=== PATIENT | male | born 1955 | race Caucasian/White ===

== ENCOUNTER 2020-04-02 09:29 | Inpatient (IN) ==
--- NOTE | 2020-03-26 12:19 | Anesthesiology Consultation ---
Date of Service March 26, 2020 Assessment & Plan (1) Encounter for pre-operative examination: Chart Review Chart Review: Acceptable Risk for Surgery and Patient NOT seen in Pre Admission Testing Per nursing assessment 03/25/20, pt resides in [facility]. Travel to [facility] for doctor's appointment (wore mask). . No known contact with PUIs or Covid positive people. No current Covid related symptoms or history of Covid testing - Check BSG AM DOS History Surgery Operation Date: 04/02/20 11:15 Proposed Procedures p L2-S1 Decompression Fusion, Spinal Cord Monitoring - Juve Verde, Height/Weight Height: 5 ft 11 in Weight: 124.738 kg Allergies Allergy/AdvReac Type Severity Reaction Status Date / Time morphine AdvReac Intermediate NAUSEA AND Verified 03/25/20 15:33 VOMITING oxycodone AdvReac Intermediate N/V Verified 03/25/20 15:33 Medications Home Medications Medication Instructions Recorded Confirmed Last Taken acetaminophen 1,000 mg PO Q8H PRN 07/13/18 03/25/20 Unknown docusate sodium [Stool Softener] 100 mg PO HS 07/13/18 03/25/20 Unknown propranolol 20 mg tablet 20 mg PO BID #60 tab 03/02/20 03/25/20 Unknown lisinopril 10 mg PO HS 03/25/20 03/25/20 Unknown metformin 500 mg PO QPM 03/25/20 03/25/20 Unknown naproxen sodium [Aleve] 440 mg PO Q12H PRN 03/25/20 03/25/20 Unknown Past Medical History Medical History Benign essential hypertension Hearing deficit Lumbar spinal stenosis Lumbar spondylosis Osteoarthritis of hip T2DM (type 2 diabetes mellitus) Tremor reason for propanolol Past Family History Family History Father Cardiac disorder Hypertension Family history of diabetes mellitus Mother Lung cancer Family history of diabetes mellitus Daughter Family history of diabetes mellitus Grandmother (Maternal) Family history of diabetes mellitus Grandmother (Paternal) Family history of diabetes mellitus Other No family history of adverse response to anesthesia Denies family history of Ovarian cancer Prostate cancer Breast cancer Colorectal cancer Past Surgical History Surgical History History of bilateral cataract extraction History of left hip replacement (2011) History of right hip replacement (2015) x2--2016, 05/10/2018 History of tooth extraction 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 Social History Smoking Status: Never smoker tobacco type: cigars Do You Dip or Chew Tobacco: No Hx Alcohol Use: Yes Alcohol type: beer alcohol intake frequency: other Alcohol Intake Frequency Comment: rarely, one or 2 drinks a year Hx Substance Use: No substance use type: does not use Testing Laboratory Results Laboratory Tests 03/12/20 03/24/20 03/24/20 10:55 08:46 08:46 WBC 5.18 Hgb 15.0 Hct 44.1 Plt Count 209 PT 11.3 INR 1.1 Sodium 140 Potassium 4.3 Chloride 105 Carbon Dioxide 27 BUN 19 H Creatinine 1.04 Glucose 105 H Hemoglobin A1c TSH 03/24/20 03/24/20 08:46 08:47 WBC Hgb Hct Plt Count PT INR Sodium Potassium Chloride Carbon Dioxide BUN Creatinine Glucose Hemoglobin A1c 6.0 H TSH 1.210 Electrocardiogram Date: 03/12/20 Findings: + NSR @ (81) Chest X-Ray Date: 03/12/20 Findings: + NAD Heart is borderline enlarged. There is minor basilar interstitial thickening.
[~2020-04-02 09:29] MED LIST: ACETAMINOPHEN 500 MG TAB PO SCH; CEFAZOLIN 3000MG 72.5 ML IV SCH; CeleBREX 200 MG CAP PO SCH; GABAPENTIN 600 MG DOSE PO SCH; LR 15ML/HR IV SCH
[2020-04-02] MEDS ORDERED: ROCURONIUM BROMIDE 10 MG/ML 5 ML VIAL ONE ×5 (10:03→14:37)
[2020-04-02] MEDS ORDERED: PROPOFOL IV EMULSION 10 MG/ML 20 ML VIAL IV ONE (10:03)
[2020-04-02] MEDS ORDERED: DEXAMETHASONE SOD INJ 4 MG/ML VIAL ONE (10:03)
[2020-04-02] MEDS ORDERED: fentaNYL citrate 100 MCG/2 ML VIAL ONE ×2 (10:03→15:24)
[2020-04-02] MEDS ORDERED: ONDANSETRON INJ 2 MG/ML 2 ML VIAL ONE (10:03)
[2020-04-02] MEDS ORDERED: LIDOCAINE HCL 2% 2 ML VIAL/AMP(20MG/ML) INFIL ONE (10:03)
[2020-04-02] MEDS ORDERED: MIDAZOLAM HCL 1 MG/ML 2ML VIAL ONE (10:03)
--- NOTE | 2020-04-02 10:13 | History & Physical Bridge Note ---
Date of Service April 02, 2020 History & Physical Bridge Note I have examined the patient, reviewed the History & Physical and in the interval since the performance of the History & Physical I have noted the following changes of clinical significance: no changes noted
--- NOTE | 2020-04-02 10:14 | History & Physical Report ---
Date of Service April 02, 2020 Assessment & Plan (1) Neurogenic claudication due to lumbar spinal stenosis: L2-S1 decompression fusion Present on Admission?: Yes History of Present Illness Chief Complaint: Back with bilateral leg pain Primary Care Provider: Loren Rubi DO This is a 64-year-old male who presents with marked decline in status with progressive back and bilateral leg pain. After failing extensive course of nonoperative care he is here for surgical intervention. Allergies Allergy/AdvReac Type Severity Reaction Status Date / Time morphine AdvReac Intermediate NAUSEA AND Verified 04/02/20 10:04 VOMITING oxycodone AdvReac Intermediate N/V Verified 04/02/20 10:04 Home Medications Home Medications Medication Instructions Recorded Confirmed Type docusate sodium [Stool Softener] 100 mg PO HS 07/13/18 04/02/20 History propranolol 20 mg tablet 20 mg PO BID #60 tab 03/02/20 04/02/20 Rx lisinopril 10 mg PO HS 03/25/20 04/02/20 History metformin 500 mg PO QPM 03/25/20 04/02/20 History Past Med/Surg History Medical History Benign essential hypertension Hearing deficit Lumbar spinal stenosis Lumbar spondylosis Osteoarthritis of hip T2DM (type 2 diabetes mellitus) Tremor reason for propanolol Surgical History History of bilateral cataract extraction History of left hip replacement (2011) History of right hip replacement (2015) x2--2015, 05/10/2018 History of tooth extraction 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 Family History Father Cardiac disorder Hypertension Family history of diabetes mellitus Mother Lung cancer Family history of diabetes mellitus Daughter Family history of diabetes mellitus Grandmother (Maternal) Family history of diabetes mellitus Grandmother (Paternal) Family history of diabetes mellitus Other No family history of adverse response to anesthesia Denies family history of Ovarian cancer Prostate cancer Breast cancer Colorectal cancer Social History Preferred Language: Urugu[place] Communication Ability: Effective Visual Impairment: No Limitations Hearing Ability: Normal Cashier Associate Required: No Beliefs That Will Affect Care: None marital status: Current Living Situation: Spouse current occupational status: employed 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 Other Information That Helps Us Care for You: No Feels Safe at Home: Yes Safety Concerns: Feels Safe At This Time Smoking Status: Former smoker Tobacco Type: cigars ; Do You Dip or Chew Tobacco: No ; Second Hand Exposure: No ; Tobacco Cessation Education Requested by Patient: No Hx Alcohol Use: Yes Alcohol type: beer Hx Substance Use: No Childhood Exposure to Second-Hand Smoke: No caffeine: No Dental Care, Regularly: No Physical Activity Frequency: Does not Exercise Seatbelt Use: always Physical Exam Physical Exam: Patient is alert and oriented Heart is regular rate and rhythm Lungs clear to auscultation Neurologically intact Results & Data Vital Signs (Past 12 Hours) Vital Signs Temp Pulse Resp BP Pulse Ox 04/02/20 10:00 37 C 78 18 131/73 96
[2020-04-02] MEDS ORDERED: EPINEPHrine INJ 1 MG/ML AMP ONE (10:56)
[2020-04-02] MEDS ORDERED: BUPIVACAINE 0.5 % 5 MG/1 ML MPF 30ML VIAL ONE (10:56)
[2020-04-02] MEDS ORDERED: BACITRACIN INJ 50,000 UNIT VIAL ONE (10:56)
[2020-04-02] MEDS ORDERED: ePHEDrine sulfate 50 MG/ML AMP IV PRN (11:18)
[2020-04-02] MEDS ORDERED: fentaNYL citrate 100 MCG/2 ML VIAL IV PRN (11:18)
[2020-04-02] MEDS ORDERED: HYDROmorphone INJ 2 MG/ML SYR/VIAL IV PRN (11:18)
[2020-04-02] MEDS ORDERED: ONDANSETRON INJ 2 MG/ML 2 ML VIAL IV PRN ×2 (11:18→16:36)
[2020-04-02] MEDS ORDERED: ATROPINE SULFATE 0.1 MG/ML 10ML SYR IV PRN (11:18)
[2020-04-02] MEDS ORDERED: PHENYLEPHRINE 100MCG/ML 5ML SYR ONE (12:41)
[2020-04-02] MEDS ORDERED: ePHEDrine sulfate 50 MG/ML SYR ONE ×2 (12:41→14:36)
[2020-04-02] MEDS ORDERED: ALBUMIN HUMAN 5% 12.5 GM/250 ML VIAL IV ONE (14:33)
[2020-04-02] MEDS ORDERED: NEOSTIGMINE METHYLSULFATE 5 MG/5 ML SYR ONE (14:36)
[2020-04-02] MEDS ORDERED: GLYCOPYRROLATE 0.2 MG/ML VIAL ONE (14:36)
[2020-04-02] MEDS ORDERED: FLOSEAL HEMOSTATIC MATRIX 10ML TOP ONE (14:46)
--- NOTE | 2020-04-02 14:51 | Operative Report ---
Post Operative Report Pre & Post Diagnosis Operation Date: 04/02/20 11:15 Pre-Op Diagnosis: Neurogenic Claudication due to Lumbar Spinal Stenosis Post-Op Diagnosis: Neurogenic Claudication due to Lumbar Spinal Stenosis I identified the patient and participated in the time-out.: Yes Procedure Operation Date: 04/02/20 11:15 Actual Procedures #1 lumbar decompression with bilateral medial facetectomies and foraminotomies L2-3, L3-4, L4-5 and L5-S1. #2 posterior spinal fusion L2-3, L3-4, L4-5 and L5- S1. #3 placed a posterior segmental instrumentation L2-S1. #4 interbody fusion L4-5 and L5-S1. #5 placement titanium 10 x 26 mm cage at L4-5 and 12 x 26 mm at L5-S1. #6 placement locally harvested morselized autograft in the posterior lateral gutters. #7 placement infuse collagen sponge, master graft in the posterior lateral gutters and ostial amp and interbody space. Surgeon Juve Verde, DO Furs Salesperson Lorena Perera Estimated Blood Loss 850 Findings See Below The patient is 5 foot 11 inches tall weighing over 119 kg with a BMI in excess of 36. Patient's body habitus did add significant technical difficulty adding at least 50% increase to the operative time and will require additional p ostoperative management. Specimens None Indications This is a 64-year-old male who presents with a severe multilevel spinal stenosis and is here for the above-mentioned procedure. Description of Procedure Patient was met with preoperatively case discussed all questions addressed. After informed consent obtained patient was taken to the operative suite underwent intubation placed in a prone position the Buzz table on top of the Ulices frame. All bony prominences well-padded eyes inspected to ensure no external pressure placed upon them. This point the lumbar spine was prepped and draped in normal sterile fashion. Sharp dissection with the assistance of Bovie cautery was performed down to and exposing the lamina and transverse processes of L2 L3-L4-L5 and the sacral ala bilaterally. From a caudal cephalad fashion complete laminectomy of L5 L4 L3 and L2 was performed including bilateral medial facetectomies and foraminotomies addressing severe spinal stenosis. Pedicle screws were then placed in L2-L3 L4-L5 and S1 levels bilaterally with assistance of fluoroscopy and appropriately sized fely placed. Believe a transforaminal approach on the left complete discectomy of L5-S1 was performed endplates curetted to subcortical bleeding bone and a 12 x 26 mm titanium cage filled with osteo-bone graft tapped in position. Then proceeded to L4-[address] of a transforaminal approach complete discectomy was performed endplates coated to subcortical being bone and a 10 x 26 mm titanium cage filled osteo-amp bone graft tapped position. The rods were then locked into final position bilaterally. The transverse processes of L2 L3-L4-L5 and sacral ala burred to subcortical leading bone. Infuse collagen sponge master graft local autograft placed in the posterior lateral gutters. 15 round KELLY drain inserted. The incision was then closed with 1 Vicryl in the fascia 2-0 Vicryl subcutaneously and 4 Monocryl for final skin closure. Steri-Strip sterile dressings placed. Patient will continue PACU stable addition. Please note spinal cord monitoring was utilized that the procedure no changes noted. Lastly Lorena Perera was present at the entire procedure involved the patient positioning complex portions of the surgery and final skin closure. I attest to the content of the Intraoperative Record and any orders documented therein. Any exceptions are noted below.
--- NOTE | 2020-04-02 14:53 | Fluoroscopy Report ---
FL lumbar spine 2-3V CLINICAL HISTORY: L2-S1 DECOMP/FUSION COMPARISON STUDY: None FLUOROSCOPY TIME: 29 seconds NUMBER OF FLUOROSCOPIC IMAGES: 5 FINDINGS: Image intensifier support for lumbar laminectomy and fusion IMPRESSION: Image intensifier support for an L2-S1 lumbar laminectomy and fusion ACT 112: Negative or not required by law. The above report was generated using voice recognition software. It may contain grammatical, syntax or spelling errors. Electronically signed by: Barrington Trimble M.D. 04/02/2020 2:52 PM
--- NOTE | 2020-04-02 16:05 | Anesthesiology Progress Note ---
Date of Service April 02, 2020 Anesthesia Post Procedure Vital Signs Vital Signs: Temp Pulse Pulse Resp BP Pulse Ox 04/02/20 15:50 78 16 120/70 98 04/02/20 15:40 78 15 140/64 98 04/02/20 15:32 36.2 C L 73 18 125/51 L 98 04/02/20 10:00 37 C 78 18 131/73 96 Pain Intensity Lower Back: Pain Intensity: 7 Transfer of Care Handoff Completed per policy Notes Mental Status: alert / awake / arousable and participated in evaluation Patient Amnestic to Procedure: Yes Nausea / Vomiting: adequately controlled Pain: adequately controlled Airway Patency, RR, SpO2: stable & adequate BP & HR: stable & adequate Hydration State: stable & adequate Anesthetic Complications: no major complications apparent and Pt Satisfied with anesthetic care
[2020-04-02] MEDS ORDERED: SOD PHOSPHATE/SOD BIPHOSPHATE ENEMA 132 ML BTL PR PRN (16:36)
[2020-04-02] MEDS ORDERED: MAGNESIUM HYDROXIDE SUSP 30 ML UDC PO PRN (16:36)
[2020-04-02] MEDS ORDERED: LORazepam 0.5 MG/1 ML VIAL IV PRN (16:36)
[2020-04-02] MEDS ORDERED: DO NOT ADMINISTER PNEUMOCOCCAL VACCINE PRN (16:36)
[2020-04-02] MEDS ORDERED: ACETAMINOPHEN 1,000 MG/100 ML VIAL IV PRN (16:36)
[2020-04-02] MEDS ORDERED: DO NOT ADMINISTER FLU VACCINE PRN (16:36)
[2020-04-02] MEDS ORDERED: PROMETHAZINE HCL 12.5 MG in SODIUM CHLORIDE 0.9% 50 ML IV PRN (16:36)
[2020-04-02] MEDS ORDERED: ALUMINUM/MAGNESIUM SUSP 30 ML UDC PO PRN (16:36)
[2020-04-02] MEDS ORDERED: bisacodyL 10 MG SUPP PR PRN (16:36)
[2020-04-02] MEDS ORDERED: ONDANSETRON 4 MG OD TAB PO PRN (16:36)
[2020-04-02] MEDS ORDERED: METOCLOPRAMIDE HCL INJ 5 MG/ML 2 ML VIAL IV PRN (16:36)
[2020-04-02] MEDS ORDERED: FAMOTIDINE 20 MG TAB PO PRN (16:36)
[2020-04-02] MEDS ORDERED: NALOXONE HCL 0.4 MG/1 ML VIAL/CARP IV PRN (16:36)
[2020-04-02] MEDS: SODIUM CHLORIDE 0.9% 1000ML 1,000 ML IV SCH ×2 (16:51→23:43)
[2020-04-02] MEDS ORDERED: PHARMACY GLYCEMIC MGMT CONSULT PRN (17:03)
[2020-04-02] MEDS ORDERED: DEXTROSE 50% 50 ML SYRINGE IV PRN (17:15)
[2020-04-02] MEDS ORDERED: GLUCAGON FOR INJ 1 MG VIAL IM PRN (17:15)
[2020-04-02] MEDS ORDERED: GLUCOSE 40% GEL 15 GM TUBE PO PRN (17:15)
[2020-04-02] MEDS ORDERED: CARBOHYDRATES FOR HYPOGLYCEMIA PO PRN (17:15)
[2020-04-02] MEDS ORDERED: GLUCOSE 10 TABS/TUBE PO PRN (17:15)
--- NOTE | 2020-04-02 17:21 | Hospitalist Consultation ---
Date of Consultation April 02, 2020 Assessment & Plan (1) Neurogenic claudication due to lumbar spinal stenosis: Post op 04/02 Pain managment per primary Monitor for acute blood loss - patient with EBL of 850, given albumin peripoperatively (2) Muscle cramps: Bilateral calf pain patient reports as severe cramping since coming out of surgery Will check CBC and prp - will replace blood or electrolytes if needed Discussed with nursing - if electrolytes and hgb are normal would discuss patient's pain with surgery (3) Essential tremor: Continue home beta mehran (4) Benign essential hypertension: Continue lisinopril (5) T2DM (type 2 diabetes mellitus): Consult pharmacy for glycemic management History of Present Illness Attending Physician: Juve Verde DO History of Present Illness Mr. Gutierrez just returned form surgery a half an hour ago and is still experiencing the effects of the anesthesia. He is alert and oriented but feeling woozy and a little slow to speak. His main complaint is painful cramping in his lower extremities Pmhx: htn, DMII, Essential tremor Social: works at the [employer] in [place], , never smoker, LYCEEM Family: DMII, cancer Allergies Allergy/AdvReac Type Severity Reaction Status Date / Time morphine AdvReac Intermediate NAUSEA AND Verified 04/02/20 10:04 VOMITING oxycodone AdvReac Intermediate N/V Verified 04/02/20 10:04 Home Medications Home Medications Medication Instructions Recorded Confirmed Type docusate sodium [Stool Softener] 100 mg PO HS 07/13/18 04/02/20 History propranolol 20 mg tablet 20 mg PO BID #60 tab 03/02/20 04/02/20 Rx lisinopril 10 mg PO HS 03/25/20 04/02/20 History metformin 500 mg PO QPM 03/25/20 04/02/20 History Patient History Medical History Benign essential hypertension Hearing deficit Lumbar spinal stenosis Lumbar spondylosis Osteoarthritis of hip T2DM (type 2 diabetes mellitus) Tremor reason for propanolol Surgical History History of bilateral cataract extraction History of left hip replacement (2011) History of right hip replacement (2015) x2--2015, 05/10/2018 History of tooth extraction 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 Family History Father Cardiac disorder Hypertension Family history of diabetes mellitus Mother Lung cancer Family history of diabetes mellitus Daughter Family history of diabetes mellitus Grandmother (Maternal) Family history of diabetes mellitus Grandmother (Paternal) Family history of diabetes mellitus Other No family history of adverse response to anesthesia Denies family history of Ovarian cancer Prostate cancer Breast cancer Colorectal cancer Social History Preferred Language: Sami Communication Ability: Effective Visual Impairment: No Limitations Hearing Ability: Normal Director Loan Required: No Beliefs That Will Affect Care: None marital status: Current Living Situation: Spouse current occupational status: employed 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 Other Information That Helps Us Care for You: No Feels Safe at Home: Yes Safety Concerns: Feels Safe At This Time Smoking Status: Former smoker Tobacco Type: cigars ; Do You Dip or Chew Tobacco : No ; Second Hand Exposure: No ; Tobacco Cessation Education Requested by Patient: No Hx Alcohol Use: Yes Alcohol type: beer Hx Substance Use: No Childhood Exposure to Second-Hand Smoke: No caffeine: No Dental Care, Regularly: No Physical Activity Frequency: Does not Exercise Seatbelt Use: always Physical Exam Physical Exam: General: no distress Eyes: normal inspection, PERLL Respiratory: chest non tender, clear to auscultation, normal breath sounds, no respiratory distress, no accessory muscle use Cardiac: regular rate and rhythm, no rub or gallop, no murmur, no edema, no jvd GI/: active bowel sounds, no abd pain or tenderness, soft, non distended Extremities: normal range of motion, normal strength, non tender Neuro/Psych: drowsy and oriented x 3, slow to speak, tracking slowly with eyes Skin: normal color, dry Results & Data Results & Data ([facility]) Vital Signs (Past 12 Hours) Vital Signs Temp Pulse Pulse Resp BP BP Pulse Ox 04/02/20 17:05 36.8 C 81 16 139/85 98 04/02/20 16:20 87 15 148/87 H 96 04/02/20 16:10 36.3 C L 85 16 157/80 H 96 04/02/20 16:00 36.3 C L 78 16 128/61 98 04/02/20 15:50 78 16 120/70 98 04/02/20 15:40 78 15 140/64 98 04/02/20 15:32 36.2 C L 73 18 125/51 L 98 04/02/20 10:00 37 C 78 18 131/73 96 PG Care Time/CCT Total # of Minutes Spent Total Time Spent with Patient: Total time spent is greater than 50% in coordination of care (as documented) at patient's floor/unit and/or counseling patient: Coding Level of Care Code 39863 Inpt Consult Level 4 Diagnoses Neurogenic claudication due to lumbar spinal stenosis M48.062 Muscle cramps R25.2 Essential tremor G25.0 Benign essential hypertension I10 T2DM (type 2 diabetes mellitus) E11.9
[2020-04-02] MEDS: KETOROLAC TROMETHAMINE 15 MG/ML VIAL IV SCH ×2 (17:33→23:44)
[2020-04-02 17:49] LABS: Basophils # (auto) 0.01 K/uL (0-0.2); Basophils % (auto) 0.1 %; Eosinophils # (auto) 0.03 K/uL (0-0.5); Eosinophils % (auto) 0.2 %; Hematocrit (blood only) 37.5 % (42-52); Hemoglobin 12.6 g/dL (14.0-18.0); Immature Granulocytes # (auto) 0.04 K/uL (0.00-0.02); Immature Granulocytes % (auto) 0.3 %; Lymphocytes # (auto) 0.58 K/uL (1.2-3.4); Lymphocytes % (auto) 3.9 %; Mean Corpuscular Hemoglobin 30.8 pg (25-34); Mean Corpuscular Hgb Conc 33.6 g/dL (32-36); Mean Corpuscular Volume 91.7 fL (80-100); Mean Platelet Volume 10.8 fL (7.4-10.4); Monocytes # (auto) 0.55 K/uL (0.11-0.59); Monocytes % (auto) 3.7 %; Neutrophils # (auto) 13.61 K/uL (1.4-6.5); Neutrophils % (auto) 91.8 %; Platelet Count 180 K/uL (130-400); RDW Coefficient of Variation 13.2 % (11.5-14.5); RDW Standard Deviation 44.6 fL (36.4-46.3); Red Blood Count 4.09 M/uL (4.7-6.1); White Blood Count 14.82 K/uL (4.8-10.8)
[2020-04-02 18:08] LABS: Albumin Level 3.7 gm/dl (3.4-5.0); Calcium 8.1 mg/dl (8.5-10.1); Creatinine Clr Calc Pharmacy 92.5 ml/min; Est GFR (African American) 85.5; Est GFR (Non-African American) 73.8; Potassium 4.3 mmol/L (3.5-5.1)
[2020-04-02 18:11] LABS: Albumin Globulin Ratio 1.3 (0.9-2); Bilirubin,Total 0.6 mg/dl (0.2-1); Globulin 2.8 gm/dl (2.5-4.0); Total Protein 6.5 gm/dl (6.4-8.2)
[2020-04-02] MEDS: NovoLIN-N (NPH) PER UNIT CHARGE SQ ONE ×2 (18:31→19:02)
[2020-04-02] MEDS: INSULIN ASPART 100 UNITS/ML 3 ML PEN SC SCH ×2 (18:32→22:25)
[2020-04-02] MEDS: CEFAZOLIN 2000MG 2,000 MG/15 ML SYR IV SCH (18:39)
[2020-04-02] MEDS: TRAMADOL HCL 50 MG TABLET PO PRN (20:00)
[2020-04-02] MEDS: PROPRANOLOL HCL 20 MG TAB PO SCH (20:05)
[2020-04-02] MEDS: lisinopriL 10 MG TAB PO SCH (20:05)
[2020-04-02] MEDS: DOCUSATE SODIUM/SENNA 50/8.6MG TAB PO SCH (20:05)
[2020-04-02] MEDS: DOCUSATE SODIUM 100 MG CAP PO SCH (20:05)
[2020-04-03] MEDS: TRAMADOL HCL 50 MG TABLET PO PRN ×3 (01:07→22:15)
[2020-04-03] MEDS: LORazepam 0.5 MG TAB PO PRN ×4 (01:07→17:42)
[2020-04-03] MEDS: CEFAZOLIN 2000MG 2,000 MG/15 ML SYR IV SCH (03:41)
[2020-04-03] MEDS: POLYETHYLENE (MIRALAX) 17 GM PACK PO SCH ×3 (05:53→18:11)
[2020-04-03] MEDS: KETOROLAC TROMETHAMINE 15 MG/ML VIAL IV SCH ×2 (05:53→11:32)
[2020-04-03] MEDS: SODIUM CHLORIDE 0.9% 1000ML 1,000 ML IV SCH (06:13)
[2020-04-03 07:03] LABS: Basophils # (auto) 0.01 K/uL (0-0.2); Basophils % (auto) 0.1 %; Eosinophils # (auto) 0.02 K/uL (0-0.5); Eosinophils % (auto) 0.2 %; Hematocrit (blood only) 30.8 % (42-52); Hemoglobin 10.5 g/dL (14.0-18.0); Immature Granulocytes # (auto) 0.02 K/uL (0.00-0.02); Immature Granulocytes % (auto) 0.2 %; Lymphocytes # (auto) 0.95 K/uL (1.2-3.4); Lymphocytes % (auto) 10.7 %; Mean Corpuscular Hemoglobin 31.3 pg (25-34); Mean Corpuscular Hgb Conc 34.1 g/dL (32-36); Mean Corpuscular Volume 91.9 fL (80-100); Monocytes # (auto) 0.64 K/uL (0.11-0.59); Monocytes % (auto) 7.2 %; Neutrophils # (auto) 7.23 K/uL (1.4-6.5); Neutrophils % (auto) 81.6 %; Platelet Count 163 K/uL (130-400); RDW Coefficient of Variation 13.1 % (11.5-14.5); RDW Standard Deviation 44.2 fL (36.4-46.3); Red Blood Count 3.35 M/uL (4.7-6.1); White Blood Count 8.87 K/uL (4.8-10.8)
[2020-04-03 07:33] LABS: BUN Creatinine Ratio 16.9 (10-20); Calcium 8.1 mg/dl (8.5-10.1); Creatinine Clr Calc Pharmacy 89.9 ml/min; Est GFR (African American) 82.7; Est GFR (Non-African American) 71.4; Potassium 4.1 mmol/L (3.5-5.1)
[2020-04-03] MEDS: PROPRANOLOL HCL 20 MG TAB PO SCH ×2 (08:34→20:47)
[2020-04-03] MEDS: INSULIN ASPART 100 UNITS/ML 3 ML PEN SC SCH ×4 (08:34→20:53)
--- NOTE | 2020-04-03 09:27 | Orthopedic Progress Note ---
Date of Service April 03, 2020 Assessment & Plan (1) Neurogenic claudication due to lumbar spinal stenosis: At this time initiate physical therapy monitor his KELLY output. We will maintain his Taylor today. Present on Admission?: Yes Admission and Anticipated Discharge Date Admission Date: April 02, 2020 Subjective Patient states his back pain is controlled. He is having difficulty with spasms to lower extremities left greater than right. He does have a history of spasms. Do not appear to be radicular in nature. Physical Exam Physical Exam: On exam he does have good strength testing. At this time he is comfortable. Results & Data ([facility]) Vital Signs (Past 12 Hours) Vital Signs Temp Pulse Pulse Resp BP BP Pulse Ox 04/03/20 07:33 36.7 C 76 18 96/63 L 93 04/03/20 03:24 36.9 C 85 14 104/63 93 04/02/20 23:52 36.9 C 76 14 112/73 96
[2020-04-03] MEDS: DEXAMETHASONE SOD PHOSPHATE 8 MG in SYRINGE 0 ML IV SCH (10:10)
[2020-04-03] MEDS: HYDROmorphone INJ 1 MG/ML SYRINGE IV PRN (12:48)
--- NOTE | 2020-04-03 13:31 | Hospitalist Progress Note ---
Date of Service April 03, 2020 Assessment & Plan (1) Neurogenic claudication due to lumbar spinal stenosis: Post op 04/02 Pain managment per primary (2) Muscle cramps: Bilateral calf pain patient reports as severe cramping since coming out of surgery Electrolytes wnl. Today with left leg weakness - defer to surgery who are aware of the issue (3) Essential tremor: Continue home beta mehran (4) Benign essential hypertension: Continue lisinopril (5) T2DM (type 2 diabetes mellitus): Consult pharmacy for glycemic management (6) Acute blood loss anemia: Hgb 10 today - continue to trend Admission and Anticipated Discharge Date Admission Date: April 02, 2020 Subjective Mr Matt continues to have lower extremity pain and cramping. He also is experiencing left leg weakness. Dr. Verde is aware of these issues ROS Constitutional: no chills, aches, sweats or fever Respiratory: no sob,cough, sputum, or wheezing Cardiac: no chest pain, palpitations, edema, orthopnea or lightheadedness GI: no abdominal pain, nausea, vomiting, diarrhea or constipation : no dysuria or hesitancy Extremities: no joint pain or weakness Skin: no rash All other systems reviewed and negative Physical Exam Physical Exam: General: no distress Eyes: normal inspection, PERLL Respiratory: chest non tender, clear to auscultation, normal breath sounds, no respiratory distress, no accessory muscle use Cardiac: regular rate and rhythm, no rub or gallop, no murmur, no edema, no jvd GI/: active bowel sounds, no abd pain or tenderness, soft, non distended Extremities: normal range of motion, normal strength, non tender Neuro/Psych: alert and oriented x 3, normal mood and affect Skin: normal color, dry Results & Data Results & Data ([facility]) Vital Signs (Past 12 Hours) Vital Signs Temp Pulse Pulse Resp BP BP Pulse Ox 04/03/20 07:33 36.7 C 76 18 96/63 L 93 04/03/20 03:24 36.9 C 85 14 104/63 93 PG Care Time/CCT Total # of Minutes Spent Total Time Spent with Patient: Total time spent is greater than 50% in coordination of care (as documented) at patient's floor/unit and/or counseling patient: Coding Level of Care Code 67577 Subseq Hosp Care Lvl 2 Diagnoses Neurogenic claudication due to lumbar spinal stenosis M48.062 Muscle cramps R25.2 Essential tremor G25.0 Benign essential hypertension I10 T2DM (type 2 diabetes mellitus) E11.9 Acute blood loss anemia D62
[2020-04-03] MEDS ORDERED: NovoLIN-N (NPH) PER UNIT CHARGE SQ ONE (13:45)
--- NOTE | 2020-04-03 13:47 | Pharmacy Report ---
Glycemic Control Consultation - Date of Service April 03, 2020 - Scope Scope: Glycemic Pharmacist consulted for glycemic control and to write orders per [facility] inpatient glycemic control protocol. - Objective Weight: 119.2 kg Accuchecks BSG (last 24hrs): 04/02/20 04/02/20 04/02/20 15:34 17:02 17:42 Glucose 179 H POC Glucose 132 H 178 H 04/02/20 04/03/20 04/03/20 20:31 06:52 08:18 Glucose 126 H POC Glucose 135 H 105 H 04/03/20 12:16 Glucose POC Glucose 128 H Laboratory Data (last 24hrs): 04/02/20 04/03/20 17:42 06:52 Potassium 4.3 4.1 Carbon Dioxide 25 26 Anion Gap 5.0 5.0 Creatinine 1.06 1.09 Est Cr Clr Drug Dosing 92.5 89.9 - Recent Pertinent Medications Outpatient Anti-diabetic Regimen: * Metformin 500 mg qPM * A1c = 6 % 03/24/20 INPATIENT INSULIN REGIMEN AND CAUSES OF INSULIN RESISTANCE: - Assessment & Plan Assessment & Plan: ASSESSMENT: * 64 y/o male admitted s/p spinal surgery. His metformin was placed on hold and he received basal + bolus insulin yesterday due to receiving Decadron in the OR. Now he is POD 1. Decadron has been reordered today (8 mg IV daily) so will need to provide another dose of basal to control BSGs. SCr stable and PO intake adequate - will resume metformin this evening in preparation for discharge. PLAN FOR INPATIENT GLYCEMIC CONTROL: * Resume metformin 500 mg w/ dinner * Basal insulin * Another NPH 20 units x 1 now to cover Decadron given late this morning * Further doses dependent on receiving further doses of Decadron * Bolus insulin * NovoLog per scale ACHS or Q6hrs while NPO * Goal Range: Low 110 mg/dL - High 140 mg/dL * Correction Factor: 18 mg/dL/unit * Nutritional / Prandial insulin per carb ratio of 1 unit per 6 grams CHO consumed * Please note that the plan above was derived based on current level of insulin resistance and hospital stress. These recommendations are appropriate for inpatient admission only. Plan of care upon discharge will need to be reassessed to avoid potential outpatient hypo/hyperglycemia. Thank you.
[2020-04-03] MEDS: METFORMIN HCL 500 MG TAB PO SCH (18:11)
[2020-04-03] MEDS: DOCUSATE SODIUM 100 MG CAP PO SCH (20:47)
[2020-04-03] MEDS: lisinopriL 10 MG TAB PO SCH (20:47)
[2020-04-03] MEDS: DOCUSATE SODIUM/SENNA 50/8.6MG TAB PO SCH (20:47)
[2020-04-03] MEDS ORDERED: LACTATED RINGER'S 1,000 ML IV SCH (22:00)
[2020-04-04] MEDS: POLYETHYLENE (MIRALAX) 17 GM PACK PO SCH ×4 (00:17→17:37)
[2020-04-04] MEDS: HYDROmorphone INJ 0.5 MG/0.5 ML SYR IV PRN (00:47)
[2020-04-04] MEDS: TRAMADOL HCL 50 MG TABLET PO PRN ×3 (05:14→17:13)
[2020-04-04] MEDS: LORazepam 0.5 MG TAB PO PRN ×2 (05:14→17:14)
[2020-04-04 07:19] LABS: Basophils # (auto) 0.02 K/uL (0-0.2); Basophils % (auto) 0.2 %; Eosinophils # (auto) 0.04 K/uL (0-0.5); Eosinophils % (auto) 0.5 %; Hematocrit (blood only) 29.4 % (42-52); Hemoglobin 9.7 g/dL (14.0-18.0); Immature Granulocytes # (auto) 0.02 K/uL (0.00-0.02); Immature Granulocytes % (auto) 0.2 %; Lymphocytes # (auto) 1.27 K/uL (1.2-3.4); Lymphocytes % (auto) 14.4 %; Mean Corpuscular Hemoglobin 30.5 pg (25-34); Mean Corpuscular Volume 92.5 fL (80-100); Monocytes # (auto) 0.88 K/uL (0.11-0.59); Neutrophils # (auto) 6.61 K/uL (1.4-6.5); Neutrophils % (auto) 74.7 %; Platelet Count 161 K/uL (130-400); RDW Coefficient of Variation 13.3 % (11.5-14.5); RDW Standard Deviation 45.1 fL (36.4-46.3); Red Blood Count 3.18 M/uL (4.7-6.1); White Blood Count 8.84 K/uL (4.8-10.8)
[2020-04-04] MEDS: ACETAMINOPHEN 500 MG TAB PO PRN (08:53)
[2020-04-04] MEDS: PROPRANOLOL HCL 20 MG TAB PO SCH ×2 (08:53→21:03)
[2020-04-04] MEDS: DEXAMETHASONE SOD PHOSPHATE 8 MG in SYRINGE 0 ML IV SCH (08:53)
[2020-04-04] MEDS: INSULIN ASPART 100 UNITS/ML 3 ML PEN SC SCH ×4 (08:54→20:56)
[2020-04-04] MEDS ORDERED: NovoLIN-N (NPH) PER UNIT CHARGE SQ ONE (09:00)
--- NOTE | 2020-04-04 09:21 | Pharmacy Report ---
Glycemic Control Progress Note - Date of Service April 04, 2020 - Scope Glycemic Pharmacist consulted for glycemic control to write orders per [facility] inpatient glycemic control protocol. - Objective Accuchecks BSG(last 24 hours):: 04/03/20 04/03/20 04/03/20 12:16 16:59 20:50 POC Glucose 128 H 144 H 142 H 04/04/20 08:13 POC Glucose 89 - Recent Pertinent Medications The patient is currently receiving: * Basal insulin: NPH 20 units with decadron 8 mg IV * Correctional Insulin: Novolog Correction per scale ACHS Goal Range: Low 110 mg/dL - High 140 mg/dL Correction Factor: 18 mg/dL/unit * Prandial insulin: Per carb ratio of 1 unit per 6 grams CHO consumed * Oral Agents: metformin 500 mg qDay - Outpatient Anti-Diabetic Meds metformin 500 mg po qPM - Assessment & Plan ASSESSMENT: * See progress note from 04/03/2020 for more background info, in short: * Pt receiving SQ basal bolus insulin regimen for hyperglycemia secondary to baseline DM (outpatient regimen on hold) and dexamethasone 8 mg po qAM * Patient is currently receiving an average of 44 units of insulin per day * 20 units of basal insulin * 44 units of prandial/correctional insulin * BSGs ranging 105 - 144 mg/dl over the past 24hrs * Changes needed to insulin regimen: * AM Fasting BSG = 89 mg/dl. This is goal range for patient based on inpatient targets and co-morbidities. Since patient is receiving another dose of dexamethasone will order 20 units of NPH. * Post-prandial BSGs are in range therefore no changes needed to CF/CR (decadron is continued) * Total daily dose = ~40-50 units with decadron. * Additional notes / comments:Continue metformin PLAN FOR INPATIENT GLYCEMIC CONTROL: * Continuing NPH 20 units SQ with decadron * Continuing correction factor of 18 mg/dl/unit * Continuing carb ratio of 1 unit per 6 grams CHO consumed * Continuing goal range of Low 110 mg/dL - High 140 mg/dL RECOMMENDATIONS FOR DISCHARGE: * HbA1C is well controlled. Continue home regimen. Thank you.
--- NOTE | 2020-04-04 10:40 | Orthopedic Progress Note ---
Date of Service April 04, 2020 Assessment & Plan (1) Neurogenic claudication due to lumbar spinal stenosis: continue PT, possible Rehab Monday Present on Admission?: Yes Admission and Anticipated Discharge Date Admission Date: April 02, 2020 Subjective back pain controlled. leg pain improving Physical Exam Physical Exam: strength intact, pain controlled Results & Data ([facility]) Vital Signs (Past 12 Hours) Vital Signs Temp Pulse Pulse Resp BP BP Pulse Ox 04/04/20 07:39 36.9 C 97 H 16 114/72 94 04/04/20 00:05 37.1 C 98 H 14 112/71 92
--- NOTE | 2020-04-04 13:54 | Hospitalist Progress Note ---
Date of Service April 04, 2020 Assessment & Plan (1) Neurogenic claudication due to lumbar spinal stenosis: Post op 04/02 Pain managment per primary (2) Muscle cramps: Bilateral calf pain patient reports as severe cramping since coming out of surgery with left leg weakness. Discussed with Dr. Verde - defer to primary on management Electrolytes wnl. (3) Essential tremor: Continue home beta mehran (4) Benign essential hypertension: Continue lisinopril (5) T2DM (type 2 diabetes mellitus): Consult pharmacy for glycemic management (6) Acute blood loss anemia: Continue to trend, no indication for transfusion at this time Admission and Anticipated Discharge Date Admission Date: April 02, 2020 Subjective Mr. Gutierrez continues to complain of leg cramps and left leg weakness. He was able to walk today but felt that his left leg gave out on him as he was walking. His leg cramps worsen with sitting up and improve while laying back. ROS Constitutional: no chills, aches, sweats or fever Respiratory: no sob,cough, sputum, or wheezing Cardiac: no chest pain, palpitations, edema, orthopnea or lightheadedness GI: no abdominal pain, nausea, vomiting, diarrhea or constipation : no dysuria or hesitancy Extremities: see HPI Skin: no rash All other systems reviewed and negative Physical Exam Physical Exam: General: no distress Eyes: normal inspection, PERLL Respiratory: chest non tender, clear to auscultation, normal breath sounds, no respiratory distress, no accessory muscle use Cardiac: regular rate and rhythm, no rub or gallop, no murmur, no edema, no jvd GI/: active bowel sounds, no abd pain or tenderness, soft, non distended Extremities: normal range of motion, unable to bend left knee but no loss of sensation in left leg, equal pedal pushes. Neuro/Psych: alert and oriented x 3, normal mood and affect Skin: normal color, dry Results & Data Results & Data ([facility]) Vital Signs (Past 12 Hours) Vital Signs Temp Pulse Resp BP Pulse Ox 04/04/20 07:39 36.9 C 97 H 16 114/72 94 PG Care Time/CCT Total # of Minutes Spent Total Time Spent with Patient: Total time spent is greater than 50% in coordination of care (as documented) at patient's floor/unit and/or counseling patient: Coding Level of Care Code 69716 Subseq Hosp Care Lvl 2 Diagnoses Neurogenic claudication due to lumbar spinal stenosis M48.062 Muscle cramps R25.2 Essential tremor G25.0 Benign essential hypertension I10 T2DM (type 2 diabetes mellitus) E11.9 Acute blood loss anemia D62
[2020-04-04] MEDS: METFORMIN HCL 500 MG TAB PO SCH (17:14)
[2020-04-04] MEDS: HYDROmorphone INJ 1 MG/ML SYRINGE IV PRN (19:37)
[2020-04-04] MEDS: lisinopriL 10 MG TAB PO SCH (21:03)
[2020-04-04] MEDS: DOCUSATE SODIUM 100 MG CAP PO SCH (21:06)
[2020-04-04] MEDS: DOCUSATE SODIUM/SENNA 50/8.6MG TAB PO SCH (21:06)
[2020-04-05] MEDS: POLYETHYLENE (MIRALAX) 17 GM PACK PO SCH ×5 (00:38→23:44)
[2020-04-05] MEDS: TRAMADOL HCL 50 MG TABLET PO PRN ×4 (02:20→17:00)
[2020-04-05] MEDS: ACETAMINOPHEN 500 MG TAB PO PRN (07:24)
[2020-04-05] MEDS: INSULIN ASPART 100 UNITS/ML 3 ML PEN SC SCH ×4 (08:35→20:50)
[2020-04-05] MEDS: PROPRANOLOL HCL 20 MG TAB PO SCH ×2 (08:37→20:54)
[2020-04-05] MEDS: DEXAMETHASONE SOD PHOSPHATE 8 MG in SYRINGE 0 ML IV SCH (08:37)
[2020-04-05] MEDS ORDERED: NovoLIN-N (NPH) PER UNIT CHARGE SQ ONE (09:00)
[2020-04-05] MEDS: LORazepam 0.5 MG TAB PO PRN ×2 (12:21→13:55)
--- NOTE | 2020-04-05 12:56 | Orthopedic Progress Note ---
Date of Service April 05, 2020 Assessment & Plan (1) Neurogenic claudication due to lumbar spinal stenosis: At this time we will encourage him to ambulate as much as possible. He may want to avoid prolonged sitting. It may induce some compression of the sciatic nerve and subsequent pain. His KELLY drain is decreasing appropriately. We will continue to explore possible rehab placement. Present on Admission?: Yes Admission and Anticipated Discharge Date Admission Date: April 02, 2020 Subjective Patient is experiencing left leg pain into the calf with sitting. He states walking and lying supine is tolerable. At this time he is quite comfortable. Physical Exam Physical Exam: On exam he does have good strength testing of the the plantar flexion dorsiflexion quadriceps bilateral lower extremities. I am unable to elicit tension signs. He has no tenderness palpation of his calf musculature or popliteal region. Results & Data ([facility]) Vital Signs (Past 12 Hours) Vital Signs Temp Pulse Resp BP Pulse Ox 04/05/20 07:22 36.9 C 80 16 119/77 94
--- NOTE | 2020-04-05 14:55 | Hospitalist Progress Note ---
Date of Service April 05, 2020 Assessment & Plan (1) Neurogenic claudication due to lumbar spinal stenosis: Post op 04/02 Pain management per primary Left leg strength improving (2) Muscle cramps: Bilateral calf pain patient reports as severe cramping since coming out of surgery with left leg weakness. Discussed with Dr. Verde - defer to primary on management Electrolytes wnl. (3) Essential tremor: Continue home beta mehran (4) Benign essential hypertension: Continue lisinopril (5) T2DM (type 2 diabetes mellitus): Consult pharmacy for glycemic management (6) Acute blood loss anemia: Continue to trend, no indication for transfusion at this time Will recheck labs and if acceptable, will sign off Admission and Anticipated Discharge Date Admission Date: April 02, 2020 Subjective Mr. Gutierrez's left length strength is improving but he is having quite a lot of back pain with ambulation ROS Constitutional: no chills, aches, sweats or fever Respiratory: no sob,cough, sputum, or wheezing Cardiac: no chest pain, palpitations, edema, orthopnea or lightheadedness GI: see HPI : no dysuria or hesitancy Extremities: no joint pain or weakness Skin: no rash All other systems reviewed and negative Physical Exam Physical Exam: General: no distress Eyes: normal inspection, PERLL Respiratory: chest non tender, clear to auscultation, normal breath sounds, no respiratory distress, no accessory muscle use Cardiac: regular rate and rhythm, no rub or gallop, no murmur, no edema, no jvd GI/: active bowel sounds, no abd pain or tenderness, soft, non distended Extremities: normal range of motion, normal strength, non tender Neuro/Psych: alert and oriented x 3, normal mood and affect Skin: normal color, dry Results & Data Results & Data ([facility]) Vital Signs (Past 12 Hours) Vital Signs Temp Pulse Resp BP Pulse Ox 04/05/20 07:22 36.9 C 80 16 119/77 94 PG Care Time/CCT Total # of Minutes Spent Total Time Spent with Patient: Total time spent is greater than 50% in coordination of care (as documented) at patient's floor/unit and/or counseling patient: Coding Level of Care Code 19888 Subseq Hosp Care Lvl 2 Diagnoses Neurogenic claudication due to lumbar spinal stenosis M48.062 Muscle cramps R25.2 Essential tremor G25.0 Benign essential hypertension I10 T2DM (type 2 diabetes mellitus) E11.9 Acute blood loss anemia D62
[2020-04-05 15:32] LABS: Basophils # (auto) 0.01 K/uL (0-0.2); Basophils % (auto) 0.1 %; Hematocrit (blood only) 32.2 % (42-52); Hemoglobin 10.8 g/dL (14.0-18.0); Immature Granulocytes # (auto) 0.04 K/uL (0.00-0.02); Immature Granulocytes % (auto) 0.4 %; Lymphocytes # (auto) 0.53 K/uL (1.2-3.4); Lymphocytes % (auto) 5.2 %; Mean Corpuscular Hemoglobin 30.9 pg (25-34); Mean Corpuscular Hgb Conc 33.5 g/dL (32-36); Mean Corpuscular Volume 92.3 fL (80-100); Mean Platelet Volume 10.9 fL (7.4-10.4); Monocytes # (auto) 0.45 K/uL (0.11-0.59); Monocytes % (auto) 4.4 %; Neutrophils # (auto) 9.23 K/uL (1.4-6.5); Neutrophils % (auto) 89.9 %; Platelet Count 204 K/uL (130-400); RDW Coefficient of Variation 13.4 % (11.5-14.5); RDW Standard Deviation 44.8 fL (36.4-46.3); Red Blood Count 3.49 M/uL (4.7-6.1); White Blood Count 10.26 K/uL (4.8-10.8)
[2020-04-05 15:48] LABS: BUN Creatinine Ratio 17.6 (10-20); Calcium 8.5 mg/dl (8.5-10.1); Creatinine Clr Calc Pharmacy 96.1 ml/min; Est GFR (African American) 89.6; Est GFR (Non-African American) 77.3; Potassium 4.1 mmol/L (3.5-5.1)
[2020-04-05] MEDS: METFORMIN HCL 500 MG TAB PO SCH (17:32)
[2020-04-05] MEDS: HYDROmorphone INJ 0.5 MG/0.5 ML SYR IV PRN (20:14)
[2020-04-05] MEDS: lisinopriL 10 MG TAB PO SCH (20:54)
[2020-04-05] MEDS: DOCUSATE SODIUM/SENNA 50/8.6MG TAB PO SCH (20:55)
[2020-04-05] MEDS: DOCUSATE SODIUM 100 MG CAP PO SCH (20:55)
[2020-04-06] MEDS: LORazepam 0.5 MG TAB PO PRN (03:15)
[2020-04-06] MEDS: TRAMADOL HCL 50 MG TABLET PO PRN ×3 (05:52→17:56)
[2020-04-06] MEDS: POLYETHYLENE (MIRALAX) 17 GM PACK PO SCH ×3 (05:53→17:48)
[2020-04-06] MEDS: INSULIN ASPART 100 UNITS/ML 3 ML PEN SC SCH ×4 (08:31→21:52)
[2020-04-06] MEDS: DEXAMETHASONE SOD PHOSPHATE 8 MG in SYRINGE 0 ML IV SCH (08:32)
[2020-04-06] MEDS: PROPRANOLOL HCL 20 MG TAB PO SCH ×2 (08:32→21:27)
[2020-04-06] MEDS: ACETAMINOPHEN 500 MG TAB PO PRN ×2 (08:36→21:33)
--- NOTE | 2020-04-06 10:09 | Orthopedic Progress Note ---
Date of Service April 06, 2020 Assessment & Plan (1) Neurogenic claudication due to lumbar spinal stenosis: At this time we will continue physical therapy while we await rehab placement. We will discontinue his KELLY drain today. I will transition him from Ativan to Flexeril. Discontinue his Decadron. Present on Admission?: Yes Admission and Anticipated Discharge Date Admission Date: April 02, 2020 Subjective Patient complaining of spasms in his legs left greater than right. Often occurs with sitting. He is tolerated walking relatively well. He is comfortable lying supine. Physical Exam Physical Exam: On exam he has no tension signs to straight leg raising. Is improved strength testing lower extremities. Appears comfortable at this time. Results & Data ([facility]) Vital Signs (Past 12 Hours) Vital Signs Temp Pulse Pulse Resp BP BP Pulse Ox 04/06/20 07:37 36.8 C 76 16 145/84 H 95 04/05/20 23:30 36.7 C 84 14 147/82 H 95
[2020-04-06] MEDS ORDERED: NovoLIN-N (NPH) PER UNIT CHARGE SQ ONE (11:00)
[2020-04-06] MEDS: CYCLOBENZAPRINE HCL 10 MG TAB PO PRN ×2 (11:58→21:33)
--- NOTE | 2020-04-06 15:25 | Pharmacy Report ---
Pharmacy Glycemic Short Note 2 - Date of Service April 06, 2020 - Glycemic Short BSG Results (Last 24 hours): 04/05/20 04/05/20 04/05/20 15:06 17:15 20:48 Glucose 139 H POC Glucose 133 H 97 04/06/20 04/06/20 07:54 12:00 Glucose POC Glucose 94 136 H OUTPATIENT ANTIDIABETIC REGIMEN: * Metformin 500mg PO qPM * HbA1c: 6.0% (03/24/20) ASSESSMENT: * BSGs have been well-controlled. * Dexamethasone has been discontinued, beginning tomorrow. PLAN FOR INPATIENT GLYCEMIC CONTROL: * Hold outpatient oral diabetes medications * Basal insulin * NPH 18 units SQ today * Do not anticipate further need for NPH, as DXM has been discontinued * Bolus insulin * NovoLog per scale ACHS or Q6hrs while NPO * Goal Range: Low 110 mg/dL - High 140 mg/dL * Correction Factor: 18 mg/dL/unit * Nutritional / Prandial insulin per carb ratio of 1 unit per 6 grams CHO consumed PLAN FOR DISCHARGE: * Patient's A1c (6.0%) indicates good glycemic control as an outpatient. * Suspect that patient may resume home regimen on discharge.
[2020-04-06] MEDS: METFORMIN HCL 500 MG TAB PO SCH (17:56)
[2020-04-06] MEDS: lisinopriL 10 MG TAB PO SCH (21:28)
[2020-04-06] MEDS: DOCUSATE SODIUM/SENNA 50/8.6MG TAB PO SCH (21:33)
[2020-04-06] MEDS: DOCUSATE SODIUM 100 MG CAP PO SCH (21:50)
[2020-04-07] MEDS: TRAMADOL HCL 50 MG TABLET PO PRN ×4 (00:10→20:45)
[2020-04-07] MEDS: POLYETHYLENE (MIRALAX) 17 GM PACK PO SCH ×5 (00:12→23:49)
[2020-04-07] MEDS: LORazepam 0.5 MG TAB PO PRN ×2 (01:06→23:49)
[2020-04-07] MEDS: INSULIN ASPART 100 UNITS/ML 3 ML PEN SC SCH ×4 (08:50→22:26)
[2020-04-07] MEDS: PROPRANOLOL HCL 20 MG TAB PO SCH ×2 (08:51→20:46)
--- NOTE | 2020-04-07 13:49 | Orthopedic Progress Note ---
Date of Service April 07, 2020 Assessment & Plan (1) Neurogenic claudication due to lumbar spinal stenosis: This time we will continue physical therapy await placement hopefully to rehab tomorrow. Present on Admission?: Yes Admission and Anticipated Discharge Date Admission Date: April 02, 2020 Subjective Back pain is controlled leg symptoms steadily improving. Physical Exam Physical Exam: On exam he has good strength testing appears comfortable today. Results & Data ([facility]) Vital Signs (Past 12 Hours) Vital Signs Temp Pulse Resp BP Pulse Ox 04/07/20 06:51 36.7 C 78 18 137/79 96
[2020-04-07] MEDS: METFORMIN HCL 500 MG TAB PO SCH (15:46)
[2020-04-07] MEDS: CYCLOBENZAPRINE HCL 10 MG TAB PO PRN (17:14)
[2020-04-07] MEDS: lisinopriL 10 MG TAB PO SCH (20:47)
[2020-04-07] MEDS: DOCUSATE SODIUM/SENNA 50/8.6MG TAB PO SCH (20:50)
[2020-04-07] MEDS: DOCUSATE SODIUM 100 MG CAP PO SCH (20:50)
[2020-04-07] MEDS: ACETAMINOPHEN 500 MG TAB PO PRN (23:47)
[2020-04-08] MEDS: POLYETHYLENE (MIRALAX) 17 GM PACK PO SCH ×2 (04:18→11:49)
[2020-04-08] MEDS: TRAMADOL HCL 50 MG TABLET PO PRN ×2 (04:18→12:37)
[2020-04-08] MEDS: INSULIN ASPART 100 UNITS/ML 3 ML PEN SC SCH ×2 (09:21→12:39)
[2020-04-08] MEDS: PROPRANOLOL HCL 20 MG TAB PO SCH (09:22)
[2020-04-08] MEDS: ACETAMINOPHEN 500 MG TAB PO PRN (09:22)
--- NOTE | 2020-04-08 10:08 | Discharge Summary ---
Date of Service April 08, 2020 Admission HPI Per Admitting Provider This is a 64-year-old male who presents with marked decline in status with progressive back and bilateral leg pain. After failing extensive course of nonoperative care he is here for surgical intervention. Principal Diagnosis Lumbar spinal stenosis with neurogenic claudication Discharge Data Allergies Allergy/AdvReac Type Severity Reaction Status Date / Time morphine AdvReac Intermediate NAUSEA AND Verified 04/02/20 10:04 VOMITING oxycodone AdvReac Intermediate N/V Verified 04/02/20 10:04 Consultations 04/02/20 16:36 Consult Case Management - Discharge Planning Routine Consult Hospitalist Routine Procedures Performed Operation Date: 04/02/20 11:15 Actual Procedures p L2-S1 Decompression Fusion with Insertion of Interbodies, Bone Morphogentic Protein Spinal Cord Monitoring(Not Applicable) - Juve Verde DO Ordered Studies 04/02/20 11:15 FL fluoroscopy <1hr Routine FL lumbar spine 2-3V Routine Hospital Course (1) Neurogenic claudication due to lumbar spinal stenosis: Patient underwent multilevel lumbar decompression fusion tolerated this well was taken to orthopedic for postoperative. I do prolonged postoperative course as he progressed with leg function and improvement of his pain. He did however qualify for physical therapy and was subsequently discharged. Excellent strength testing on his last day of hospitalization. He was ambulating in the halls with assistance. Subsequently discharged to rehab. Discharge orders instructions from the chart for further review. Total Time Total Time Spent Total Time Spent (In Minutes): 20 minutes Discharge Plan Discharge Items Patient Disposition: Transfer Inpatient Rehab Fac Reason For Visit: Spinal Stenosis, Lumbar Region with Neurogenic Cla Discharge Diagnosis: lumbar stenosis Activity: As commented below Non-emergency contact: Primary Care Provider Call non-emergency contact if: you have any medication questions Follow-up/Referrals: Loren Rubi DO [Primary Care Provider] - Diet: Regular Addtl Attending Provider Instructions: ACTIVITY RECOMMENDATIONS: SELF CARE INSTRUCTIONS AFTER THORACIC/LUMBAR FUSIONS 1. You may walk to your tolerance. It is good exercise for your legs and back. Expect some back and intermittent leg aches and pains. 2. You may perform "counter-top" level activities (make a sandwich, danyel with a project, etc.). 3. No bending or lifting of more than 10 pounds or back twisting of any nature (roll like a log when turning in bed). 4. You may ride in a car for 20-30 minutes at a time. No driving until after your first visit with your doctor. 5. Frequent changes of position and restricting sitting to 30 minutes at a time will help limit the amount of back spasms and stiffness you may experience. 6. You may discontinue the use of ambulatory aids (cane, crutches, etc.) once your strength and confidence allow. 7. You may gang supervisor pipe lines the shower and let water strike your incision when you arrive home at least once daily. Do not take a tub bath, sit in a hot tub or go into a swimming pool until after your first recheck in the office. SPECIAL CARE INSTRUCTIONS: VERY IMPORTANT TO READ AND REVIEW A. Your surgical incision has been closed with a cosmetic suture under the skin that will dissolve in about 6 weeks. In 14 days, you can use a pair of clean scissors and cut the suture that is left outside of the skin at the ends of your incision. 1. The small skin tapes can be removed 7 days after surgery if they have not fallen off by that point. 2. You may keep the wound open to air as much as possible to promote healing after post-op day number 5 unless told otherwise by your doctor. 3. If you think the wound looks like it is becoming infected (redness or worsening drainage) and/or you are experiencing fever, chill or worsening back pain and muscle spasms, contact the office so that we may evaluate you as soon as possible. B. Complications are uncommon, but please contact us if you have any signs or symptoms of: 1. wound infection (fever higher than 102.5 degrees F, redness, separation of wound, drainage, or increasing pain from the incision) 2. blood clots in legs (pain, swelling, redness and warmth in legs) 3. urinary tract infection (fever higher than 102.5 degrees F, burning upon urination or increased frequency of urination) 4. nerve problems (inability to walk on your toes or heels, numbness, loss of bowel or bladder control) 5. any other symptoms that concern you C. Please call the office at if you have any concerns or questi ons about your operation or recovery. D. No smoking! Smoking drastically decreases the chance of a solid fusion. E. Do not take any anti-inflammatory medications (Indocin, Advil, Motrin, Aspirin, Naprosyn, etc.) as these may inhibit the chance of a solid fusion. Tylenol is okay to take for pain. MANAGING PAIN AFTER SPINAL SURGERY 1. Narcotic medication is intended for short-term use and will be provided for surgical pain. Surgical pain usually lasts for a period of 4-6 weeks. Narcotic medication includes Percocet, Vicodin, Darvocet, Tylenol #3 or Lortab. 2. Longer-term pain is more appropriately treated with non-narcotic medication such as Tylenol ES. 3. Muscle spasm is not appropriately treated with narcotics. Muscle relaxers such as Soma, Flexeril or Skelaxin can be used along with Tylenol ES. 4. Remember that we all live with some "aches and pains". This is not unusual or uncommon after an injury or as we get older. a. Back pain is expected and may include muscle spasms for 4 to 6 weeks after surgery. The pain should gradually improve. If the pain worsens for no apparent reason, please contact the office. b. Intermittent leg pain may also be experienced and should not be concerned about unless it worsens for no apparent reason. If so, please contact the office. 5. We will provide appropriate medication within the normal guidelines of their prescribed use. We will also be very cautious and aware of potential abuse and extended duration of patients' medication needs. a. Pain medications are for your comfort and to assist with sleep and rest so that the tissue can heal. They are not provided in order to return to normal activity and should not be used through the day. To do so or worsening pain at night can result from ongoing tissue damage and development of tolerance to the prescribed medicine. 6. Please allow 2-3 days to process refills. Prescriptions will not be mailed but must be picked up at the office. FOLLOW UP VISIT: Keep your scheduled follow-up appointment. Any questions, please call the office at . Pending Studies at Discharge: No Stand-Alone Forms: My [facility] [email or web address] Skilled Items Patient informed of condition?: Yes DNR: No Discharge Level of Care: Acute rehab Communicable Disease: No Discharge Prognosis: Improving Lines: None Urinary Catheter: No Medications and DC Order Prescriptions: New tramadol 50 mg tablet 50 mg PO Q6H PRN (Reason: pain, moderate) Qty: 30 RF: 0 Continued propranolol 20 mg tablet 20 mg PO BID Qty: 60 RF: 2 docusate sodium [Stool Softener] 100 mg Capsule 100 mg PO HS RF: 0 lisinopril 10 mg tablet 10 mg PO HS RF: 0 metformin 500 mg tablet extended release 24 hr 500 mg PO QPM RF: 0 Discharge Orders: Discharge Order (Routine); Ordered 04/08/20 Ordered By: Juve Verde Admission Data Admit Date/Time: 04/02/20 15:37 Attending Provider: Juve Verde Admit Provider: Juve Verde Primary Care Provider: Loren Rubi. Other Providers: Paula Galvez ; [facility]
== END 2020-04-08 13:06 | DRG 454 ==
LOC: ASU 09:29 → 3E 15:37

== ENCOUNTER 2024-05-16 12:21 | Inpatient (IN) ==
--- NOTE | 2024-05-16 12:59 | Emergency Department Note ---
History of Present Illness General Chief complaint: Facial Injury/Pain Stated complaint: FACIAL SWELLING Time Seen by Provider: 05/16/24 12:58 History of Present Illness Maximum Pain Intensity: 5 NAME: BLANCA ROMANO AGE: 68 SEX: M : 1955 ARRIVES VIA: Walk-In INFORMANT: Patient ED PROVIDER(S): GWEN Fair, Chau Fung DO The patient is a 68-year-old male who arrives to the emergency department for evaluation of facial swelling and dental pain. He reports he began to have some tooth pain in the right upper mouth on Monday, however it seemed to get better. He reports it began starting again yesterday, and his son noticed some significant facial swelling. He reports initially the dental pain was not significant yesterday, then after a few hours it became severely painful. He states the swelling began in the upper cheek, and has extended towards his nose and below his eye since that time. He states no fevers, or difficulty swallowing. He attempted to contact a dentist, who stated he would not be able to see him in office and he should be directed to the emergency department. He is currently alert and oriented, his vital signs are stable. Home Medications Medication Instructions Recorded Confirmed Type naproxen sodium 220 mg capsule 220 mg PO BID PRN Pain 10/08/20 05/16/24 History (Aleve) cholecalciferol (vitamin D3) 50 50 mcg PO DAILY 11/25/20 05/16/24 History mcg (2,000 unit) capsule docusate sodium 100 mg capsule 100 mg PO BID PRN Constipation 04/05/22 05/16/24 History (Stool Softener) mecobalamin (vitamin B12) 1,000 1,000 mcg sublingual DAILY #90 tabs 10/14/22 05/16/24 Rx mcg disintegrating tablet,sublingual carbidopa 25 mg-levodopa 100 mg 2 tab PO QID 90 days #720 tabs 12/18/23 05/16/24 Rx tablet gabapentin 600 mg tablet 600 mg PO TID #270 tabs 01/01/24 05/16/24 Rx lisinopril 10 mg tablet 10 mg PO HS #90 tabs 04/02/24 05/16/24 Rx metformin 500 mg tablet,extended 500 mg PO QPM #90 tabs 04/02/24 05/16/24 Rx release 24 hr carbidopa ER 50 mg-levodopa 200 mg 1 tab PO QID 04/25/24 05/16/24 History tablet,extended release ropinirole 0.5 mg tablet 0.5 mg PO HS 05/16/24 05/16/24 History Allergies Allergy/AdvReac Type Severity Reaction Status Date / Time morphine AdvReac Intermediate NAUSEA AND Verified 04/10/24 09:23 VOMITING oxycodone AdvReac Intermediate N/V Verified 04/10/24 09:23 Past Med/Surg History Problem List (Updated 05/17/24 @ 09:42 by GWEN Sanchez) Pain, dental (Acute) Facial abscess (Acute) B12 deficiency T2DM (type 2 diabetes mellitus) Osteoarthritis of hip Lumbar spondylosis Lumbar spinal stenosis Benign essential hypertension Depression Anemia Parkinson disease Vitamin D deficiency Mixed action and resting tremor Peripheral neuropathy Medical History Neurogenic claudication due to lumbar spinal stenosis Hearing deficit Surgical History Hx of decompressive lumbar laminectomy (03/2020) History of tooth extraction History of bilateral cataract extraction History of right hip replacement (2015) x2--2015, 05/10/2018 History of left hip replacement (2011) 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 Family History Father Cardiac disorder Hypertension Family history of diabetes mellitus Mother Lung cancer Family history of diabetes mellitus Daughter Family history of diabetes mellitus Grandmother (Maternal) Family history of diabetes mellitus Grandmother (Paternal) Family history of diabetes mellitus Other No family history of adverse response to anesthesia Denies family history of Ovarian cancer Prostate cancer Breast cancer Colorectal cancer Social History Smoking Status: Never smoker Second Hand Exposure: No; Do You Dip or Chew Tobacco: No; Hx Alcohol Use: No Hx Substance Use: No Preferred Language: Tajik Communication Ability: Effective Visual Impairment: No Limitations Hearing Ability: Hard of Hearing 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 Required: No Beliefs That Will Affect Care: None marital status: Current Living Situation: Spouse current occupational status: 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 Other Information That Helps Us Care for You: No Feels Safe at Home: Yes Safety Concerns: Feels Safe At This Time Childhood Exposure to Second-Hand Smoke: No Diet: regular caffeine: Yes during the past year weight has: remained stable Dental Care, Regularly: No Physical Activity Frequency: Does not Exercise Seatbelt Use: always Sunscreen Use: No Assistive Devices: Cane Physical Exam Vital Signs Vital Signs - 24 hr 05/16/24 12:32 05/16/24 15:13 Temperature 36.7 C Temperature Source Temporal Artery Scan Pulse Rate 96 H Pulse Rate [Finger] 90 Respiratory Rate 16 18 Respiratory Effort / Characteristics Non-Labored Non-Labored Spontaneous Respiratory Depth Normal Normal Respiratory Pattern Regular Blood Pressure 148/71 H Blood Pressure [Right Arm] 143/82 H Blood Pressure Mean 96 Blood Pressure Mean [Right Arm] 102 Blood Pressure Position Sitting Blood Pressure Position [Right Arm] Sitting Pulse Oximetry 95 97 Oxygen Delivery Method Room Air Room Air Sepsis Recent Fever Within 48 Hours No Sepsis New/Unexplained Change in Mental Status N/A Sepsis Action Taken by Nursing No Action Required VITALS: Vitals are noted on the nurse's note and reviewed by myself. Vital signs stable. GENERAL: 68-year-old male, in no acute distress, nondiaphoretic, well-developed well-nourished. SKIN: There is a significant facial cellulitis on the right upper cheek extending below the eye, and towards the right side of the nose, causing edema to the right lower eyelid. No drainage present. HEAD: Normocephalic atraumatic. EYES: Pupils equal round and reactive to light and accommodation. Conjunctivae without injection, sclerae without icterus. Extraocular movements intact. MOUTH: Poor dentition, multiple broken teeth, small abscess present with surrounding erythema and edema to the right upper jaw over tooth #6. NECK: Supple without nuchal rigidity. No lymphadenopathy. HEART: Regular rate and rhythm without murmurs gallops or rubs. LUNGS: Clear to auscultation bilaterally without wheezes, rales or rhonchi. No retractions or accessory muscle use. ABDOMEN: Positive bowel sounds x 4. Soft, nontender, without masses or organomegaly. Thorpe sign negative. No guarding or rebound tenderness. MUSCULOSKELETAL: No muscle atrophy, erythema, or edema noted. Normal gait. Strength 5/5 throughout. NEURO: Patient was alert and oriented to person place and time. No focal neurological deficits. Course Administered Medications Carbidopa/Levodopa (Carbidopa/Levodopa 50/200mg Ext Rel Tab) 1 tab PO QID IVELISSE Stop: 06/15/24 20:59 Last Admin: 05/17/24 08:26 Dose: 1 tab Documented By: PMB Co-signed By: Milla Admin: 05/16/24 21:58 Dose: 1 tab Documented By: LOVE Carbidopa/Levodopa (Carbidopa/Levodopa 25/100mg Tab) 2 tab PO QID IVELISSE Stop: 06/15/24 20:59 Last Admin: 05/17/24 08:26 Dose: 2 tab Documented By: PMB Co-signed By: Milla Admin: 05/16/24 21:58 Dose: 2 tab Documented By: LOVE Chlorhexidine Gluconate (Chlorhexidine Gluconate 0.12% 480 Ml) 15 ml MT BID IVELISSE Stop: 06/15/24 20:59 Last Admin: 05/17/24 08:28 Dose: 15 ml Documented By: PMB Co-signed By: [facility] Admin: 05/16/24 22:10 Dose: 15 ml Documented By: LOVE Gabapentin (Gabapentin 600 Mg Tab) 600 mg PO TID IVELISSE Stop: 06/15/24 20:59 Last Admin: 05/17/24 08:27 Dose: 600 mg Documented By: PMB Co-signed By: Milla Admin: 05/16/24 21:58 Dose: 600 mg Documented By: LOVE Ampicillin Sodium/Sulbactam Sodium 3,000 mg/ Sodium Chloride 100 mls @ 100 mls/hr IV Q6H IVELISSE Stop: 05/26/24 19:59 Last Admin: 05/17/24 08:24 Dose: 100 mls/hr Documented By: PMB Co-signed By: GEORGIE Infusion: 05/17/24 03:19 Dose: Infused Documented By: Admin: 05/17/24 02:14 Dose: 100 mls/hr Documented By: Infusion: 05/16/24 21:40 Dose: Infused Documented By: Admin: 05/16/24 20:37 Dose: 100 mls/hr Documented By: LOVE Ibuprofen (Ibuprofen 800 Mg Tab) 800 mg PO Q6H PRN PRN Reason: Pain Stop: 06/15/24 21:29 Last Admin: 05/17/24 06:06 Dose: 800 mg Documented By: Admin: 05/16/24 22:10 Dose: 800 mg Documented By: LOVE Insulin Aspart (Insulin Aspart Per Unit Charge) 0 units SC [facility] IVELISSE Stop: 06/15/24 16:29 Last Admin: 05/17/24 09:04 Dose: 2 units Documented By: GEORGIE Co-signed By: FERMIN Admin: 05/16/24 21:00 Dose: Not Given Documented By: LOVE Co-signed By: KYLE Admin: 05/16/24 17:50 Dose: Not Given Documented By: FERMIN Lisinopril (Lisinopril 10 Mg Tab) 10 mg PO [facility] Stop: 06/15/24 20:59 Last Admin: 05/16/24 21:58 Dose: 10 mg Documented By: LOVE Ropinirole HCl (Ropinirole Hcl 0.25 Mg Tablet) 0.5 mg PO [facility] Stop: 06/15/24 20:59 Last Admin: 05/16/24 21:58 Dose: 0.5 mg Documented By: LOVE Discontinued Medications Acetaminophen (Acetaminophen 325 Mg Tab) 650 mg PO Q6H PRN PRN Reason: pain(1-4),headache,fever Stop: 06/15/24 15:43 Last Admin: 05/16/24 18:04 Dose: 650 mg Documented By: FERMIN Carbidopa/Levodopa (Carbidopa/Levodopa 25/100mg Tab) 2 tab PO NOW STA Stop: 05/16/24 15:53 Last Admin: 05/16/24 16:10 Dose: 2 tab Documented By: KAREEN Carbidopa/Levodopa (Carbidopa/Levodopa 50/200mg Ext Rel Tab) 1 tab PO NOW STA Stop: 05/16/24 15:58 Last Admin: 05/16/24 16:10 Dose: 1 tab Documented By: KAREEN Gabapentin (Gabapentin 600 Mg Tab) 600 mg PO NOW STA Stop: 05/16/24 15:53 Last Admin: 05/16/24 16:10 Dose: 600 mg Documented By: KAREEN Ampicillin Sodium/Sulbactam Sodium 3,000 mg/ Sodium Chloride 100 mls @ 200 mls/hr IV NOW STA Stop: 05/16/24 14:09 Last Infusion: 05/16/24 15:13 Dose: Infused Documented By: Admin: 05/16/24 14:25 Dose: 200 mls/hr Documented By: CC Ioversol (Optiray 320 100ml) 94 ml IV ONCE ONE Stop: 05/16/24 14:34 Last Admin: 05/16/24 14:34 Dose: 94 ml Documented By: LIN Medical Decision Making Differential Diagnosis Dental caries, dental abscess, Ludwigs angina, Vincent angina, dental fracture, facial cellulitis, parotitis, osteomyelitis, sinus infection, peritonsillar abscess. Medical Records Attestation: I reviewed the patient's medical records. Home Medications Current Medication List: was personally reviewed by nj Laboratory Data Attestation: I reviewed the patient's lab results. No leukocytosis, stable hemoglobin and hematocrit, no significant electrolyte abnormalities. 05/17/24 06:40 05/17/24 06:40 Lab Results 05/16/24 Range/Units 13:53 WBC 8.90 (4.8-10.8) K/ul RBC 4.97 (4.70-6.10) M/uL Hgb 15.3 (14.0-18.0) g/dl Hct 46.4 (42.0-52.0) % MCV 93.4 (80.0-100.0) fL MCH 30.8 (25.0-34.0) pg MCHC 33.0 (32.0-36.0) g/dL RDW Std Deviation 45.5 (36.4-46.3) fL RDW Coeff of Nano 13.3 (11.5-14.5) % Plt Count 184 (130-400) K/uL MPV 10.9 (9.4-12.4) fL Immature Gran % (Auto) 0.2 % Neut % (Auto) 78.6 % Lymph % (Auto) 11.1 % [place] % (Auto) 8.5 % Eos % (Auto) 1.2 % Baso % (Auto) 0.4 % Neut # (Auto) 6.98 H (1.40-6.50) K/uL Lymph # (Auto) 0.99 L (1.20-3.40) K/uL [place] # (Auto) 0.76 H (0.11-0.59) K/uL Eos # (Auto) 0.11 (0.00-0.50) K/uL Baso # (Auto) 0.04 (0.00-0.20) K/uL Immature Gran # (Auto) 0.02 (0.01-0.20) K/uL Sodium 139 (136-145) mmol/L Potassium 4.2 (3.5-5.1) mmol/L Chloride 104 (98-107) mmol/L Carbon Dioxide 29 (21-32) mmol/L Anion Gap 6 (3-11) BUN 18 (6-23) mg/dl Creatinine 0.90 (0.6-1.4) mg/dl Est Cr Clr Drug Dosing 102.6 ml/min Est GFR ( Amer) 101.4 ml/min Est GFR (Non-Af Amer) 87.5 ml/min BUN/Creatinine Ratio 20.0 (10-20) Glucose 94 (70-99(Fasting)) mg/dl Calcium 9.4 (8.6-10.3) mg/dl Total Bilirubin 0.5 (0.2-1.0) mg/dl AST 24 (13-39) U/L ALT 16 (7-52) U/L Alkaline Phosphatase 111 H (34-104) U/L Total Protein 7.6 (6.0-8.3) gm/dl Albumin 4.7 (3.4-5.0) gm/dl Globulin 2.9 (2.5-4.0) gm/dl Albumin/Globulin Ratio 1.6 (0.9-2) Blood Pressure Blood Pressure Findings: Normal blood pressure MDM Narrative The patient is a pleasant 68-year-old male who arrives to the emergency department for the above-stated complaint. Upon examination the patient has a significant facial cellulitis with an acute onset starting yesterday, with an associated probable dental abscess. A saline lock was established, CBC, CMP, were obtained. CBC shows no leukocytosis, with a stable hemoglobin and hematocrit, CMP is unremarkable. A CT of the face with IV contrast was obtained which shows an 8 mm periapical lucency at ADA 6, with an associated 7 mm abscess. Due to the acute onset, and progression the patient was started on IV Unasyn. I was able to contact Dr. Ivy for consult from oral maxillofacial surgery. He stated he would evaluate the patient when he is out of office hours today at approximately 4:15 PM. Case management was contacted for assistance with hospital admission. [facility] for IV antibiotics with probable intervention by Dr. Ivy. The patient remained n.p.o. during his stay in the emergency department. His vital signs were stable. Please refer to Dr. Gurrola's documentation for further patient care, as well as Dr. Ivy's documentation. The patient's case was discussed with Dr. Fung, who agreed with my evaluation and treatment plan. Impression & Plan Facial abscess, Pain, dental Discharge Plan Visit Data Chief Complaint: Facial Injury/Pain Stated Complaint: FACIAL SWELLING ED Provider: Chau Fung ED Midlevel Provider: Gila Lewis Discharge Problem: Facial abscess, Pain, dental Patient Disposition: Admitted As Inpatient Discharge Instructions Interventions: ED Discharge Assessment Last Done: 05/16/24 16:20
[2024-05-16 14:08] LABS: Basophils # (auto) 0.04 K/uL (0.00-0.20); Basophils % (auto) 0.4 %; Eosinophils # (auto) 0.11 K/uL (0.00-0.50); Eosinophils % (auto) 1.2 %; Hematocrit (blood only) 46.4 % (42.0-52.0); Hemoglobin 15.3 g/dl (14.0-18.0); Immature Granulocytes # (auto) 0.02 K/uL (0.01-0.20); Immature Granulocytes % (auto) 0.2 %; Lymphocytes # (auto) 0.99 K/uL (1.20-3.40); Lymphocytes % (auto) 11.1 %; Mean Corpuscular Hemoglobin 30.8 pg (25.0-34.0); Mean Corpuscular Volume 93.4 fL (80.0-100.0); Mean Platelet Volume 10.9 fL (9.4-12.4); Monocytes # (auto) 0.76 K/uL (0.11-0.59); Monocytes % (auto) 8.5 %; Neutrophils # (auto) 6.98 K/uL (1.40-6.50); Neutrophils % (auto) 78.6 %; Platelet Count 184 K/uL (130-400); RDW Coefficient of Variation 13.3 % (11.5-14.5); RDW Standard Deviation 45.5 fL (36.4-46.3); Red Blood Count 4.97 M/uL (4.70-6.10)
[2024-05-16 14:23] LABS: Albumin Globulin Ratio 1.6 (0.9-2); Albumin Level 4.7 gm/dl (3.4-5.0); Bilirubin,Total 0.5 mg/dl (0.2-1.0); Calcium 9.4 mg/dl (8.6-10.3); Creatinine Clr Calc Pharmacy 102.6 ml/min; Est GFR (African American) 101.4 ml/min; Est GFR (Non-African American) 87.5 ml/min; Globulin 2.9 gm/dl (2.5-4.0); Potassium 4.2 mmol/L (3.5-5.1); Total Protein 7.6 gm/dl (6.0-8.3)
[2024-05-16] MEDS: AMPICILLIN/SULBACTAM SOD 3,000 MG in SODIUM CHLOR 0.9% MINI-B 100 ML IV STA (14:25)
[2024-05-16] MEDS: OPTIRAY 320 100ml IV ONE (14:34)
--- NOTE | 2024-05-16 15:04 | CT Scan Report ---
CT facial bones w con CT DOSE: CLINICAL HISTORY: abscess . Right facial swelling. TECHNIQUE: Multiaxial CT images of the facial bones were performed following the intravenous administ ration of contrast and reformatted in the sagittal and coronal planes. A dose lowering technique was utilized adhering to the principles of ALARA. COMPARISON STUDY: None. FINDINGS: Multiple dental caries are noted. There is an 8 mm periapical lucency at ADA 6 with an asso ciated small focus of cortical breakthrough along the buccal surface. This likely accounts for the ad jacent 7 mm soft tissue abscess best seen on image 87. Soft tissue swelling within the right side of the face is noted. This is likely reactive. Prior bilateral lens replacement. Otherwise, the orbits a re unremarkable. The visualized brain parenchyma is within normal limits. Mild calcified plaque withi n the bilateral carotid bifurcations. Prevertebral soft tissues and the epiglottis are normal in [place]. The parotid and submandibular glands are symmetric. The paranasal sinuses and mastoid air cell s are clear. No fractures identified within the facial bones. The mastoid air cells are clear. IMPRESSION: There is an 8 mm periapical lucency at ADA 6 with an associated small focus of cortical breakthrough along the buccal surface. This likely accounts for the adjacent 7 mm soft tissue abscess . ACT 112: Negative or not required by law. Electronically signed by: Oliver Conway M.D. 05/16/2024 3:02 PM
--- NOTE | 2024-05-16 15:41 | History & Physical Report ---
Date of Service May 16, 2024 Assessment & Plan (1) Facial abscess: Plan: Admit to [facility] Currently stable, nontoxic-appearing, and with improving swelling after first dose of IV Unasyn Presented to the ED with 24 hours of progressive swelling of the face inferior to the right eye Swelling became so severe that it began compromising the peripheral right visual field Patient has poor oral hygiene and has been having pain in the right upper wisdom tooth for the past week CT of the face Notes an 8 mm periapical lucency with associated small focus of cortical breakthrough along buccal surface, likely accounting for the adjacent 7 mm soft tissue abscess. No leukocytosis, no visual compromise or pain with extraocular movements on exam Continue Unasyn Dr. Ivy has been consulted and will be evaluating the patient this afternoon, will keep him n.p.o. until evaluated Pain is currently controlled, will start as needed Tylenol for now Bilateral SCDs for DVT prophylaxis until we confirm OR plans AM CBC, CMP, mag, PT/INR (2) Parkinson disease: Plan: Will give his afternoon doses of extended release and immediate release Sinemet along with afternoon dose of gabapentin now Continue 4 times daily dosing of immediate and extended Sinemet Continue 3 times daily gabapentin Fall precautions ordered (3) T2DM (type 2 diabetes mellitus): Plan: Hold metformin Monitor BSG ACHS, goal is [id number] Is not on insulin at home For now we will start conservative regimen with CF of 50 and CR of 15 ACHS Adjust regimen as needed (4) Benign essential hypertension: Plan: Currently stable Will plan to continue home lisinopril Plan The patient was discussed with Dr. Gurrola at the time of the Admission History of Present Illness Chief Complaint: Right facial swelling Primary Care Provider: DO Uvaldo Thompson is a 68-year-old male with past medical history significant for Parkinson's disease, DM type II, hypertension who presented to the [facility] ED on 05/16/2024 due to progressive right facial swelling under his right eye. Per the ED staff, the patient has had history of poor dentition and has been trying to find a surgeon who can remove his teeth but has been unable to to do so thus far. He remained stable in the ED. Labs including CBC and CMP were unremarkable. CT of the facial bones with contrast was read as an 8 mm periapical lucency at A.D.A. 6 with an associated small focus of cortical breakthrough along the buccal surface. This likely accounts for the adjacent 7 mm soft tissue abscess. The ED spoke to Dr. Ivy of ENT who will evaluate the patient this afternoon and will likely take him to the OR during this admission. Prior to admission the patient was given a dose of Unasyn. Patient was sitting in bed in no acute distress at time of exam with his bedside, history was obtained from both. Patient explains that he has right upper wisdom tooth which has been bothering him for a few months. Starting on 05/12/2024 he started to develop increased pain around the site of that tooth. Yesterday, he started to notice swelling under his right eye. Overnight the swelling significantly increased to the point that it was starting to affect his right peripheral vision in the right eye. Denies recent fever or chills, chest pain, shortness of breath, cough, abdominal pain, nausea/vomiting, dysuria, hematuria, diarrhea, or recent trauma. He explains that since receiving the first dose of Unasyn he has had significant improvement in the swelling around his right eye and no longer has vision deficits. We discussed CODE STATUS, he wishes to be DNR/DNI and for his to make medical decisions for him if he cannot make them himself. Please refer to Dr. Gurrola's attestation for any changes to the treatment plan. Allergies Allergy/AdvReac Type Severity Reaction Status Date / Time morphine AdvReac Intermediate NAUSEA AND Verified 04/10/24 09:23 VOMITING oxycodone AdvReac Intermediate N/V Verified 04/10/24 09:23 Home Medications Medication Instructions Recorded Confirmed Type naproxen sodium 220 mg capsule 220 mg PO BID PRN Pain 10/08/20 05/21/24 History (Aleve) cholecalciferol (vitamin D3) 50 50 mcg PO DAILY 11/25/20 05/21/24 History mcg (2,000 unit) capsule docusate sodium 100 mg capsule 100 mg PO BID PRN Constipation 04/05/22 05/21/24 History (Stool Softener) mecobalamin (vitamin B12) 1,000 1,000 mcg sublingual DAILY #90 tabs 10/14/22 05/21/24 Rx mcg disintegrating tablet,sublingual carbidopa 25 mg-levodopa 100 mg 2 tab PO QID 90 days #720 tabs 12/18/23 05/21/24 Rx tablet gabapentin 600 mg tablet 600 mg PO TID #270 tabs 01/01/24 05/21/24 Rx lisinopril 10 mg tablet 10 mg PO HS #90 tabs 04/02/24 05/21/24 Rx metformin 500 mg tablet,extended 500 mg PO QPM #90 tabs 04/02/24 05/21/24 Rx release 24 hr carbidopa ER 50 mg-levodopa 200 mg 1 tab PO QID 04/25/24 05/21/24 History tablet,extended release ropinirole 0.5 mg tablet 0.5 mg PO HS 05/16/24 05/21/24 History amoxicillin 875 mg-potassium 1 tab PO Q12H facial/dental 05/19/24 05/21/24 Rx clavulanate 125 mg tablet infection #14 tabs Past Med/Surg History Problem List (Updated 05/17/24 @ 20:05 by Ravin Ivy DMD) Parkinson disease with dyskinesia and fluctuating manifestations Pain, dental (Acute) Facial abscess (Acute) B12 deficiency T2DM (type 2 diabetes mellitus) Osteoarthritis of hip Lumbar spondylosis Lumbar spinal stenosis Benign essential hypertension Depression Anemia Parkinson disease Vitamin D deficiency Mixed action and resting tremor Peripheral neuropathy Medical History Neurogenic claudication due to lumbar spinal stenosis Hearing deficit Surgical History Hx of decompressive lumbar laminectomy (03/2020) History of tooth extraction History of bilateral cataract extraction History of right hip replacement (2015) x2--2016, 05/10/2018 History of left hip replacement (2011) 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 Family History Father Cardiac disorder Hypertension Family history of diabetes mellitus Mother Lung cancer Family history of diabetes mellitus Daughter Family history of diabetes mellitus Grandmother (Maternal) Family history of diabetes mellitus Grandmother (Paternal) Family history of diabetes mellitus Other No family history of adverse response to anesthesia Denies family history of Ovarian cancer Prostate cancer Breast cancer Colorectal cancer Social History Smoking Status: Never smoker Second Hand Exposure: No; Do You Dip or Chew Tobacco: No; Hx Alcohol Use: No Hx Substance Use: No Preferred Language: [place] Communication Ability: Effective Visual Impairment: No Limitations Hearing Ability: Hard of Hearing [place] Required: No Beliefs That Will Affect Care: None marital status: Current Living Situation: Spouse 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 Safe at Home: Yes Childhood Exposure to Second-Hand Smoke: No Diet: regular caffeine: Yes during the past year weight has: remained stable Dental Care, Regularly: No Physical Activity Frequency: Does not Exercise Seatbelt Use: always Sunscreen Use: No Assistive Devices: Cane Physical Exam Physical Exam: Physical Exam: General: In no acute distress, stated age, well-nourished, non-toxic appearing HEENT: Atraumatic, swelling and erythema of the skin just inferior to the right eye, no signs of infection/swelling of right conjunctiva, patient able to moving eyes in all directions without pain or vision changes, no scleral icterus, pupils around round, symmetrical, and reactive to light, moist mucus membranes, trachea midline, no thyromegaly Chest/Pulm: No respiratory distress, symmetrical chest expansion, clear breath sounds throughout Cardiac: RRR, no murmurs noted Abdomen: Negative for ascites and bruising, normoactive bowel sounds, soft, non-tender to palpation throughout Musculoskeletal: Symmetrical and without signs of acute trauma, upper and lower extremities with full ROM, no atrophy, spasticity, or flaccidity Extremities: Radial, dorsalis pedis, and posterior tibial pulses are intact and symmetrical, no edema noted in the BL LE's Skin: as described above Neuro: Alert and oriented to person, place, month, year, and president, no focal defects, significant tremors noted are at baseline per patient Psych: No acute distress, calm and cooperative during the exam Results & Data Results & Data Vital Signs (Past 12 Hours) Vital Signs Temp Pulse Pulse Resp BP BP Pulse Ox 05/16/24 15:13 90 18 143/82 H 97 05/16/24 12:32 36.7 C 96 H 16 148/71 H 95 O2 Del Method 05/16/24 15:13 Room Air 05/16/24 12:32 Room Air Laboratory Results Abnormal lab results 05/16/24 Range/Units 13:53 Neut # (Auto) 6.98 H (1.40-6.50) K/uL Lymph # (Auto) 0.99 L (1.20-3.40) K/uL Riley # (Auto) 0.76 H (0.11-0.59) K/uL Alkaline Phosphatase 111 H (34-104) U/L Diagnostic Findings Face CT 05/16/24 13:40 CT facial bones w con CT DOSE: CLINICAL HISTORY: abscess . Right facial swelling. TECHNIQUE: Multiaxial CT images of the facial bones were performed following the intravenous administration of contrast and reformatted in the sagittal and coronal planes. A dose lowering technique was utilized adhering to the principles of ALARA. COMPARISON STUDY: None. FINDINGS: Multiple dental caries are noted. There is an 8 mm periapical lucency at ADA 6 with an associated small focus of cortical breakthrough along the buccal surface. This likely accounts for the adjacent 7 mm soft tissue abscess best seen on image 87. Soft tissue swelling within the right side of the face is noted. This is likely reactive. Prior bilateral lens replacement. Otherwise, the orbits are unremarkable. The visualized brain parenchyma is within normal limits. Mild calcified plaque within the bilateral carotid bifurcations. Prevertebral soft tissues and the epiglottis are normal in [place]. The parotid and submandibular glands are symmetric. The paranasal sinuses and mastoid air cells are clear. No fractures identified within the facial bones. The mastoid air cells are clear. IMPRESSION: There is an 8 mm periapical lucency at ADA 6 with an associated small focus of cortical breakthrough along the buccal surface. This likely accounts for the adjacent 7 mm soft tissue abscess. ACT 112: Negative or not required by law. Electronically signed by: Oliver Conway M.D. 05/16/2024 3:02 PM Code Status & VTE Plan Code Status DNR/DNI VTE Prophylaxis Plan VTE Prophylaxis will be ordered: Yes PG Care Time/CCT Total # of Minutes Spent Total Time Spent with Patient: Total time spent is greater than 50% in coordination of care (as documented) at patient's floor/unit and/or counseling patient: Coding [place] [address] INT INP/OBS CARE 3/75MIN Patient Type Established Medical Decision Making High Complexity Diagnoses Facial abscess L02.01 Parkinson disease G20 T2DM (type 2 diabetes mellitus) E11.9 Benign essential hypertension I10
[2024-05-16] MEDS ORDERED: GLUCOSE 40% GEL 15 GM TUBE PO PRN (15:43)
[2024-05-16] MEDS ORDERED: DEXTROSE 50% 50 ML SYRINGE IV PRN (15:43)
[2024-05-16] MEDS ORDERED: CARBOHYDRATES FOR HYPOGLYCEMIA PO PRN (15:43)
[2024-05-16] MEDS ORDERED: GLUCAGON FOR INJ 1 MG VIAL SQ PRN (15:43)
[2024-05-16] MEDS ORDERED: GLUCOSE 10 TAB/TUBE PO PRN (15:43)
[2024-05-16] MEDS: CARBIDOPA/LEVODOPA 25/100MG TAB PO STA (16:10)
[2024-05-16] MEDS: CARBIDOPA/LEVODOPA 50/200MG EXT REL TAB PO STA (16:10)
[2024-05-16] MEDS: GABAPENTIN 600 MG TAB PO STA (16:10)
--- NOTE | 2024-05-16 17:21 | Oral/Maxillofacial Consult ---
Date of Consultation May 16, 2024 Assessment & Plan (1) Pain, dental: (2) Facial abscess: (3) Mixed action and resting tremor: (4) Benign essential hypertension: (5) Parkinson disease with dyskinesia and fluctuating manifestations: History of Present Illness Attending Physician: Lorne Gurrola MD History of Present Illness Oral Maxillofacial Surgery Exam Present Complaint: I have pain/swelling/drainage from my teeth. Symptoms have been ongoing for a while-developed pain and swelling right eye area Oral Exam: Finding--Upper right side swelling infraorbital area, swollen right eye, tender gingival tissue with deep pocket formation.Teeth are in very poor condition and removal is clinical indicated. Imaging: Grossly carious teeth Periapical infection CT facial bones w con CLINICAL HISTORY: abscess . Right facial swelling. FINDINGS: Multiple dental caries are noted. There is an 8 mm periapical lucency at ADA 6 with an associated small focus of cortical breakthrough along the buccal surface. This likely accounts for the adjacent 7 mm soft tissue abscess best seen on image 87. Soft tissue swelling within the right side of the face is noted. This is likely reactive. Prior bilateral lens replacement. Otherwise, the orbits are unremarkable. The visualized brain parenchyma is within normal limits. Mild calcified plaque within the bilateral carotid bifurcations. Prevertebral soft tissues and the epiglottis are normal in thickness. The parotid and submandibular glands are symmetric. The paranasal sinuses and mastoid air cells are clear. No fractures identified within the facial bones. The mastoid air cells are clear. IMPRESSION: There is an 8 mm periapical lucency at ADA 6 with an associated small focus of cortical breakthrough along the buccal surface. This likely accounts for the adjacent 7 mm soft tissue abscess. Soft tissue: The mucolabial fold if swollen and infected from the infected and fractured upper teeth The floor of the mouth, tongue, hard/soft palate, posterior pharyngeal area all with in normal limits, no pathology or abnormal findings noted. No lesions noted that require follow up or Bx. Oral Care: Overall oral care is very poor Occlusion: Class I with a terminal dentition and very worn teeth TMJ exam: No pop, clicking, pain, good ROM, No history of TMJ injury or dysfunction Periodontal exam: There is evidence of periodontal pathology throughout the mouth Head/Neck exam: Neck is supple, FROM, Able to extend and flex neck w/o difficulty, no masses, no abnormalities, no airway issues, no evidence of sleep apnea. Treatment Plan: Set up with general anesthesia in hospital l due to complexity of the procedure I reviewed the treatment plan and consent with the patient and his Understanding was expressed. Time was given for questions regarding the surgery, risks and post op care. Discussed alternative to treatment--procedure as planned, Do not do surgery This is an emergency as the need for the I&D and associated teeth need to be extracted KODY. The upper wisdom teeth are impacted with the roots completely w/in the sinus removal at this time is not indicated due to the fact that this will cause large sinus opening. The following teeth are decayed and fractured and removal is indicated KODY--all the upper teeth except the upper wisdom. Extraction of # 4,5,6,7,8,9,10,11,13 Extraction of the upper fractured teeth, I&D right mucobuccal fold and smooth bone for future denture. Will need to address the lower teeth in the future however the follow teeth are also grossly infected with pus drainage upon palpation note in the 18-19 and 30- 31 area. I will make a decision at the time of surgery as to removal of these teeth Risks discussed: Bleeding,Pain,swelling,infection, dry socket, delayed healing, nerve injury to face,lips,tongue,chin area which could be permanent (rare). TMJ, jaw stiffness, change in bite (rare), ear pain (referred). Sinus problems like fistula or infection. Need to leave a small root fragment in place to avoid injury to nerve or sinus. Relationship of wisdom teeth to nerve/sinus and risk of jaw fracture. Home care reviewed: tooth brushing, rinsing, follow up care with Dr Ivy. diet=[id number] dental. Surgery to be set up Monday AM as an emergency in the OR Plan I&D upper right mucobuccal and infraorbital area. Allergies Allergy/AdvReac Type Severity Reaction Status Date / Time morphine AdvReac Intermediate NAUSEA AND Verified 04/10/24 09:23 VOMITING oxycodone AdvReac Intermediate N/V Verified 04/10/24 09:23 Home Medications Medication Instructions Recorded Confirmed Type naproxen sodium 220 mg capsule 220 mg PO BID PRN Pain 10/08/20 05/16/24 History (Aleve) cholecalciferol (vitamin D3) 50 50 mcg PO DAILY 11/25/20 05/16/24 History mcg (2,000 unit) capsule docusate sodium 100 mg capsule 100 mg PO BID PRN Constipation 04/05/22 05/16/24 History (Stool Softener) mecobalamin (vitamin B12) 1,000 1,000 mcg sublingual DAILY #90 tabs 10/14/22 05/16/24 Rx mcg disintegrating tablet,sublingual carbidopa 25 mg-levodopa 100 mg 2 tab PO QID 90 days #720 tabs 12/18/23 05/16/24 Rx tablet gabapentin 600 mg tablet 600 mg PO TID #270 tabs 01/01/24 05/16/24 Rx lisinopril 10 mg tablet 10 mg PO HS #90 tabs 04/02/24 05/16/24 Rx metformin 500 mg tablet,extended 500 mg PO QPM #90 tabs 04/02/24 05/16/24 Rx release 24 hr carbidopa ER 50 mg-levodopa 200 mg 1 tab PO QID 04/25/24 05/16/24 History tablet,extended release ropinirole 0.5 mg tablet 0.5 mg PO HS 05/16/24 05/16/24 History Patient History Medical History Neurogenic claudication due to lumbar spinal stenosis Hearing deficit Surgical History Hx of decompressive lumbar laminectomy (03/2020) History of tooth extraction History of bilateral cataract extraction History of right hip replacement (2015) x2--2015, 05/10/2018 History of left hip replacement (2011) 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 Family History Father Cardiac disorder Hypertension Family history of diabetes mellitus Mother Lung cancer Family history of diabetes mellitus Daughter Family history of diabetes mellitus Grandmother (Maternal) Family history of diabetes mellitus Grandmother (Paternal) Family history of diabetes mellitus Other No family history of adverse response to anesthesia Denies family history of Ovarian cancer Prostate cancer Breast cancer Colorectal cancer Social History Smoking Status: Never smoker Second Hand Exposure: No; Do You Dip or Chew Tobacco: No; Hx Alcohol Use: No Hx Substance Use: No Preferred Language: [place] Communication Ability: Effective Visual Impairment: No Limitations Hearing Ability: Hard of Hearing [place] Maker Required: No Beliefs That Will Affect Care: None marital status: Current Living Situation: Spouse 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 Other Information That Helps Us Care for You: No Feels Safe at Home: Yes Safety Concerns: Feels Safe At This Time Childhood Exposure to Second-Hand Smoke: No Diet: regular caffeine: Yes during the past year weight has: remained stable Dental Care, Regularly: No Physical Activity Frequency: Does not Exercise Seatbelt Use: always Sunscreen Use: No Assistive Devices: Cane Results & Data Vital Signs (Past 12 Hours) Vital Signs Temp Pulse Pulse Resp BP BP Pulse Ox 05/16/24 16:41 36.7 C 89 18 132/79 96 05/16/24 16:20 85 18 142/93 H 96 05/16/24 16:19 86 18 142/93 H 96 05/16/24 15:13 90 18 143/82 H 97 05/16/24 12:32 36.7 C 96 H 16 148/71 H 95 O2 Del Method 05/16/24 16:41 Room Air 05/16/24 16:20 Room Air 05/16/24 16:19 Room Air 05/16/24 15:13 Room Air 05/16/24 12:32 Room Air PG Care Time/CCT Total # of Minutes Spent Total Time Spent with Patient: Total time spent is greater than 50% in coordination of care (as documented) at patient's floor/unit and/or counseling patient: Coding Level of Care Code 40753 INT INP/OBS CARE 2/55MIN Diagnoses Pain, dental K08.89 Facial abscess L02.01 Mixed action and resting tremor R25.9 Benign essential hypertension I10 Parkinson disease with dyskinesia and fluctuating manifestations G20.B2
[2024-05-16] MEDS: INSULIN ASPART PER UNIT CHARGE SC SCH (17:50)
--- NOTE | 2024-05-16 17:52 | XRay Report ---
XR chest 1V portable HISTORY: pre-operative clearance COMPARISON: Chest 03/12/2020. FINDINGS: There are low lung volumes. No pneumothorax. No pleural effusions. The heart remains mildly enlarged. Mild interstitial prominence may be due to the poor inspiratory effort. No evidence for pu lmonary edema. No focal lung consolidations to suggest a pneumonia. No acute fractures. IMPRESSION: 1. Stable mild cardiomegaly. 2. Low lung volumes. ACT 112: Negative or not required by law. Electronically signed by: Oliver Conway M.D. 05/16/2024 5:50 PM
[2024-05-16] MEDS: ACETAMINOPHEN 325 MG TAB PO PRN (18:04)
[2024-05-16] MEDS: AMPICILLIN/SULBACTAM SOD 3,000 MG in SODIUM CHLOR 0.9% MINI-B 100 ML IV SCH (20:37)
[2024-05-16] MEDS: CARBIDOPA/LEVODOPA 50/200MG EXT REL TAB PO SCH (21:58)
[2024-05-16] MEDS: CARBIDOPA/LEVODOPA 25/100MG TAB PO SCH (21:58)
[2024-05-16] MEDS: rOPINIRole HCL 0.25 MG TABLET PO SCH (21:58)
[2024-05-16] MEDS: lisinopril 10 MG TAB PO SCH (21:58)
[2024-05-16] MEDS: GABAPENTIN 600 MG TAB PO SCH (21:58)
[2024-05-16] MEDS: CHLORHEXIDINE GLUCONATE 0.12% 480 ML MT SCH (22:10)
[2024-05-16] MEDS: IBUPROFEN 800 MG TAB PO PRN (22:10)
[2024-05-17 07:36] LABS: Hematocrit (blood only) 42.5 % (42.0-52.0); Hemoglobin 13.8 g/dl (14.0-18.0); Mean Corpuscular Hemoglobin 30.6 pg (25.0-34.0); Mean Corpuscular Hgb Conc 32.5 g/dL (32.0-36.0); Mean Corpuscular Volume 94.2 fL (80.0-100.0); Mean Platelet Volume 11.2 fL (9.4-12.4); Platelet Count 169 K/uL (130-400); RDW Coefficient of Variation 13.2 % (11.5-14.5); RDW Standard Deviation 45.4 fL (36.4-46.3); Red Blood Count 4.51 M/uL (4.70-6.10); White Blood Count 7.87 K/ul (4.8-10.8)
[2024-05-17 07:54] LABS: Albumin Globulin Ratio 1.5 (0.9-2); Albumin Level 4.2 gm/dl (3.4-5.0); BUN Creatinine Ratio 18.7 (10-20); Bilirubin,Total 0.9 mg/dl (0.2-1.0); Creatinine Clr Calc Pharmacy 101.3 ml/min; Est GFR (Non-African American) 86.3 ml/min; Globulin 2.8 gm/dl (2.5-4.0); Magnesium 2.1 mg/dl (1.7-2.4)
--- NOTE | 2024-05-17 09:59 | Hospitalist Progress Note ---
Date of Service May 17, 2024 Assessment & Plan (1) Facial abscess: Plan: Patient presented to ED on 05/16 with complaints of right facial swelling and dentition issues. -reviewd CT of face 05/16: 8mm periapical lucency w/ associated small focus of cortical breakthrough along buccal surface, accounting for adjacent 7mm soft tissue abscess. -reviewed CBC 05/16: WBC WNL, hgb 13.8 -reviewed CMP 05/16: WNL -Continue Unasyn -Await recommendations per Dr. Ivy. Possible surgery 05/18. -tylenol as needed for pain AM CBC, BMP, CRP (2) Parkinson disease: Plan: Continue 4 times daily dosing of immediate and extended Sinemet Continue 3 times daily gabapentin Fall precautions ordered (3) T2DM (type 2 diabetes mellitus): Plan: Hold metformin Monitor BSG ACHS, goal is [id number] Is not on insulin at home For now we will start conservative regimen with CF of 50 and CR of 15 ACHS Adjust regimen as needed Plan Chronic conditions: hypertension: lisinopril DVT prophylaxis: SCD's Code status: DNR/DNI Diet: regular Disposition: continued inpatient stay, possible surgery 05/18. Admission and Anticipated Discharge Date Admission Date: May 16, 2024 Subjective Patient seen and examined this morning at bedside. Patient denied any facial pain at time of encounter. He states the IV antibiotics help his pain. He also notes improvement in his facial swelling today as well. He denies any additional complaints. He states he is to be operated on by Dr. Ivy 05/18. Physical Exam 2 Constitutional: WD/WN, vitals as above Eyes: PERRL, conjunctivae normal, anicteric sclerae ENMT: right sided facial edema. Respiratory: normal respiratory effort, lungs clear to auscultation Cardiovascular: RRR, no murmur, no edema Results & Data Results & Data Vital Signs (Past 12 Hours) Vital Signs Temp Pulse Resp BP Pulse Ox O2 Del Method 05/17/24 08:05 36.6 C 82 20 118/72 96 Room Air Laboratory Results 05/17/24 06:40 05/17/24 06:40 Diagnostic Findings Chest X-Ray 05/16/24 16:06 IMPRESSION: 1. Stable mild cardiomegaly. 2. Low lung volumes. Electronically signed by: Oliver Conway M.D. 05/16/2024 5:50 PM PG Care Time/CCT Total # of Minutes Spent Total Time Spent with Patient: Total time spent is greater than 50% in coordination of care (as documented) at patient's floor/unit and/or counseling patient: Coding Level of Care Code 17305 SUB INP/OBS CARE 2/35MIN Diagnoses Facial abscess L02.01 Parkinson's disease, unspecified whether dyskinesia present, unspecified whether manifestations fluctuate G20.A1 Dyskinesia presence: unspecified whether dyskinesia Fluctuating manifestations: unspecified whether manifestations fluctuate Type 2 diabetes mellitus without complication, without long-term current use of insulin E11.9 Diabetes mellitus fci insulin use: without terminal press operator use Diabetes mellitus complication status: without complication (2) Parkinson disease Dyskinesia presence: unspecified whether dyskinesia Fluctuating manifestations: unspecified whether manifestations fluctuate Qualified Code(s): G20.A1 - Parkinson's disease without dyskinesia, without mention of fluctuations (3) T2DM (type 2 diabetes mellitus) 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
--- NOTE | 2024-05-17 12:03 | Anesthesiology Consultation ---
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 History Surgery Operation Date: 05/18/24 07:30 Proposed Procedures p Incision and Drainage Infraorbital Abscess - Ravin Ivy DMD s Multiple Teeth Extraction - Ravin Ivy DMD Height/Weight Height: 5 ft 11 in Weight: 117.6 kg Allergies Allergy/AdvReac Type Severity Reaction Status Date / Time morphine AdvReac Intermediate NAUSEA AND Verified 04/10/24 09:23 VOMITING oxycodone AdvReac Intermediate N/V Verified 04/10/24 09:23 Medications Home Medications Medication Instructions Recorded Confirmed Last Taken naproxen sodium 220 mg capsule 220 mg PO BID PRN Pain 10/08/20 05/16/24 Unknown (Aleve) cholecalciferol (vitamin D3) 50 50 mcg PO DAILY 11/25/20 05/16/24 Unknown mcg (2,000 unit) capsule docusate sodium 100 mg capsule 100 mg PO BID PRN Constipation 04/05/22 05/16/24 Unknown (Stool Softener) mecobalamin (vitamin B12) 1,000 1,000 mcg sublingual DAILY #90 tabs 10/14/22 05/16/24 Unknown mcg disintegrating tablet,sublingual carbidopa 25 mg-levodopa 100 mg 2 tab PO QID 90 days #720 tabs 12/18/23 05/16/24 05/16/24 14:00 tablet gabapentin 600 mg tablet 600 mg PO TID #270 tabs 01/01/24 05/16/24 05/16/24 14:00 lisinopril 10 mg tablet 10 mg PO HS #90 tabs 04/02/24 05/16/24 05/15/24 21:00 metformin 500 mg tablet,extended 500 mg PO QPM #90 tabs 04/02/24 05/16/24 05/15/24 21:00 release 24 hr carbidopa ER 50 mg-levodopa 200 mg 1 tab PO QID 04/25/24 05/16/24 05/16/24 14:00 tablet,extended release ropinirole 0.5 mg tablet 0.5 mg PO HS 05/16/24 05/16/24 05/15/24 21:00 Active Medications Generic Name Dose Route Start Last Admin Trade Name Freq PRN Reason Stop Dose Admin Carbidopa/Levodopa 1 tab 05/16/24 21:00 05/17/24 08:26 Carbidopa/Levodopa 50/200mg Ext Rel Tab PO 06/15/24 20:59 1 tab QID IVELISSE Administration Carbidopa/Levodopa 2 tab 05/16/24 21:00 05/17/24 08:26 Carbidopa/Levodopa 25/100mg Tab PO 06/15/24 20:59 2 tab QID IVELISSE Administration Chlorhexidine Gluconate 15 ml 05/16/24 21:00 05/17/24 08:28 Chlorhexidine Gluconate 0.12% 480 Ml MT 06/15/24 20:59 15 ml BID IVELISSE Administration Gabapentin 600 mg 05/16/24 21:00 05/17/24 08:27 Gabapentin 600 Mg Tab PO 06/15/24 20:59 600 mg TID IVELISSE Administration Ampicillin Sodium/Sulbactam 100 mls @ 100 mls/hr 05/16/24 20:00 05/17/24 10:15 Sodium 3,000 mg/ Sodium IV 05/26/24 19:59 Infused Chloride Q6H IVELISSE Infusion Ibuprofen 800 mg 05/16/24 21:27 05/17/24 06:06 Ibuprofen 800 Mg Tab PO 06/15/24 21:29 800 mg Q6H PRN Administration Pain Insulin Aspart 0 units 05/16/24 16:30 05/17/24 09:04 Insulin Aspart Per Unit Charge SC 06/15/24 16:29 2 units ACHS IVELISSE Administration Lisinopril 10 mg 05/16/24 21:00 05/16/24 21:58 Lisinopril 10 Mg Tab PO 06/15/24 20:59 10 mg HS IVELISSE Administration Ropinirole HCl 0.5 mg 05/16/24 21:00 05/16/24 21:58 Ropinirole Hcl 0.25 Mg Tablet PO 06/15/24 20:59 0.5 mg HS IVELISSE Administration Past Medical History Medical History Neurogenic claudication due to lumbar spinal stenosis Hearing deficit Past Family History Family History Father Cardiac disorder Hypertension Family history of diabetes mellitus Mother Lung cancer Family history of diabetes mellitus Daughter Family history of diabetes mellitus Grandmother (Maternal) Family history of diabetes mellitus Grandmother (Paternal) Family history of diabetes mellitus Other No family history of adverse response to anesthesia Denies family history of Ovarian cancer Prostate cancer Breast cancer Colorectal cancer Past Surgical History Surgical History Hx of decompressive lumbar laminectomy (03/2020) History of tooth extraction History of bilateral cataract extraction History of right hip replacement (2015) x2--2016, 05/10/2018 History of left hip replacement (2011) 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 Social History Smoking Status: Never smoker tobacco type: cigars Do You Dip or Chew Tobacco: No Hx Alcohol Use: No Alcohol type: beer alcohol intake frequency: other Hx Substance Use: No substance use type: does not use Physical Exam Vital Signs Last Vital Signs Temp 97.9 F 05/17/24 11:43 Pulse 78 05/17/24 11:43 Resp 18 05/17/24 11:43 BP 128/80 05/17/24 11:43 Pulse Ox 95 05/17/24 11:43 O2 Del Method Room Air 05/17/24 11:43 Testing Laboratory Results 05/17/24 06:40 05/17/24 06:40 05/17/24 05/17/24 11:35 07:41 POC Glucose 110 H 104 H Electrocardiogram Date: 05/16/24 Findings: + NSR @ (85 bpm) Chest X-Ray Date: 05/16/24 IMPRESSION: 1. Stable mild cardiomegaly. 2. Low lung volumes.
--- NOTE | 2024-05-17 12:46 | Electrocardiogram Report ---
Test Reason : Blood Pressure : / mmHG Vent. Rate : 085 BPM Atrial Rate : 085 BPM P-R Int : 142 ms QRS Dur : 096 ms QT Int : 364 ms P-R-T Axes : 038 019 045 degrees QTc Int : 433 ms Normal sinus rhythm Normal ECG When compared with ECG of 12-MAR-2020 11:35, No significant change was found Confirmed by Rogers Varela ([id number]) on 05/17/2024 12:45:41 PM Referred By: REFERRED SELF Confirmed By:Braulio Varela
[2024-05-17] MEDS: ACETAMINOPHEN 500 MG TAB PO PRN (12:50)
--- NOTE | 2024-05-17 20:11 | Oral/Maxillofacial Progress Nt ---
Date of Service May 17, 2024 Assessment & Plan Admission and Anticipated Discharge Date Admission Date: May 16, 2024 Subjective I re evaluated Joce this AM. The swelling is now more organized upper mucobuccal fold and infraorbital area. There is now swelling and drainage lower right molar and corporate logistics manager space that is limiting his oral opening. The antibiotics and heat have helped with the acute swelling and symptoms. I explained to Mr Gutierrez that his case is an emergency as the need for the I&D and associated teeth need to be extracted KODY. The upper wisdom teeth are impacted with the roots completely w/in the sinus, removal at this time is not indicated due to the fact that this will cause large sinus opening. The following teeth are decayed and fractured and removal is indicated KODY--all the upper teeth except the upper wisdom. Extraction of # 4,5,6,7,8,9,10,11,13 Extraction of the upper fractured teeth, I&D right mucobuccal fold and smooth bone for future denture. Will need to address the lower teeth in the future however the follow teeth are also grossly infected with pus drainage upon palpation note in the 18-19 and 30- 31 area. I will make a decision at the time of surgery as to removal of these teeth. Consent to be signed prior to the surgery. NPO midnight Results & Data Vital Signs (Past 12 Hours) Vital Signs Temp Pulse Pulse Resp BP Pulse Ox O2 Del Method 05/17/24 15:05 37.1 C 76 16 111/68 94 Room Air 05/17/24 11:43 36.6 C 78 18 128/80 95 Room Air PG Care Time/CCT Total # of Minutes Spent Total Time Spent with Patient: Total time spent is greater than 50% in coordination of care (as documented) at patient's floor/unit and/or counseling patient: Coding Level of Care Code None
[2024-05-18] MEDS ORDERED: Nursing to Pharmacy Communication SCH ×2 (02:00→12:00)
[2024-05-18] MEDS: INSULIN ASPART PER UNIT CHARGE SC SCH ×2 (06:03→17:36)
[2024-05-18] MEDS ORDERED: DEXAMETHASONE SOD INJ 4 MG/ML VIAL ONE (06:49)
[2024-05-18] MEDS ORDERED: MIDAZOLAM HCL 1 MG/ML 2ML VIAL ONE (06:49)
[2024-05-18] MEDS ORDERED: fentaNYL citrate PF 100 MCG/2 ML VIAL ONE (06:49)
[2024-05-18] MEDS ORDERED: LIDOCAINE 2% 2 ML VIAL/AMP(20MG/ML) INFIL ONE (06:49)
[2024-05-18] MEDS ORDERED: ONDANSETRON INJ 2 MG/ML 2 ML VIAL ONE (06:49)
[2024-05-18] MEDS ORDERED: SUCCINYLCHOLINE CHLORIDE 20 MG/ML 10 ML VIAL IV ONE (06:49)
[2024-05-18] MEDS ORDERED: PROPOFOL IV EMULSION 10 MG/ML 20 ML VIAL IV ONE (06:49)
[2024-05-18] MEDS ORDERED: ROCURONIUM BROMIDE 10 MG/ML 5 ML VIAL IV ONE (06:49)
[2024-05-18] MEDS ORDERED: ONDANSETRON INJ 2 MG/ML 2 ML VIAL IV PRN (07:03)
[2024-05-18] MEDS ORDERED: ATROPINE SULFATE 0.1 MG/ML 10ML SYR IV PRN (07:03)
[2024-05-18] MEDS ORDERED: ePHEDrine sulfate 50 MG/ML AMP IV PRN (07:03)
[2024-05-18 07:11] LABS: Hematocrit (blood only) 41.2 % (42.0-52.0); Hemoglobin 13.9 g/dl (14.0-18.0); Mean Corpuscular Hemoglobin 31.6 pg (25.0-34.0); Mean Corpuscular Hgb Conc 33.7 g/dL (32.0-36.0); Mean Corpuscular Volume 93.6 fL (80.0-100.0); Mean Platelet Volume 10.7 fL (9.4-12.4); Platelet Count 163 K/uL (130-400); RDW Coefficient of Variation 13.2 % (11.5-14.5); RDW Standard Deviation 45.8 fL (36.4-46.3); White Blood Count 6.25 K/ul (4.8-10.8)
--- NOTE | 2024-05-18 07:31 | History & Physical Bridge Note ---
Date of Service May 18, 2024 History & Physical Bridge Note I have examined the patient, reviewed the History & Physical and in the interval since the performance of the History & Physical I have noted the following changes of clinical significance: no changes noted. OK for the I&D and dental extractions as planned
[2024-05-18 07:34] LABS: Albumin Globulin Ratio 1.5 (0.9-2); Albumin Level 3.9 gm/dl (3.4-5.0); BUN Creatinine Ratio 22.9 (10-20); Bilirubin,Total 0.6 mg/dl (0.2-1.0); Calcium 8.5 mg/dl (8.6-10.3); Creatinine Clr Calc Pharmacy 111.1 ml/min; Est GFR (African American) 104.8 ml/min; Est GFR (Non-African American) 90.4 ml/min; Globulin 2.6 gm/dl (2.5-4.0); Potassium 3.9 mmol/L (3.5-5.1); Total Protein 6.5 gm/dl (6.0-8.3)
[2024-05-18] MEDS: CHLORHEXIDINE GLUCONATE 0.12% 480 ML MT ONE (08:21)
[2024-05-18] MEDS ORDERED: SUGAMMADEX SODIUM 200 MG/2 ML VIAL IV ONE (08:32)
[2024-05-18] MEDS: BUPIVACAINE/EPINEPHRINE 0.5% 1:200,000 1.8 ML CARP ONE (08:48)
[2024-05-18] MEDS: SURGICEL ABSORB HEMOSTAT 2IN X 14IN TOP ONE (08:48)
--- NOTE | 2024-05-18 09:10 | Post Operative Brief Note ---
PG Immediate Post Op with CF Date of Surgery May 18, 2024 Pre & Post Diagnosis Operation Date: 05/18/24 07:30 Pre-Op Diagnosis: Right facial abscess Post-Op Diagnosis: Right facial abscess I identified the patient and participated in the time-out.: Yes Procedure Operation Date: 05/18/24 07:30 Actual Procedures p Incision and Drainage of upper right Infraorbital Abscess; Extraction of multiple teeth(Right) - Ravin Ivy, ROCIO Surgeon Ravin Ivy, ROCIO [employer] Planner none Estimated Blood Loss 5 Findings Consistent with Post-Op Diagnosis acute infraorbital infection, masseter space infection and carious abscessed teeth Specimens Specimen Description: 1. Right infraorbital abscess culture Anesthesia Type General Complications none Disposition Accompanied Patient To Recovery: Yes
[2024-05-18] MEDS: fentaNYL citrate PF 100 MCG/2 ML VIAL IV PRN (09:43)
--- NOTE | 2024-05-18 09:52 | Anesthesiology Progress Note ---
Date of Service May 18, 2024 Anesthesia Post Procedure Vital Signs Vital Signs: Temp Pulse Pulse Resp BP Pulse Ox O2 Del Method 05/18/24 09:30 76 15 123/75 98 Room Air 05/18/24 09:20 74 12 117/77 98 Room Air 05/18/24 09:12 96.8 F L 74 20 125/79 98 Oxymask 05/18/24 06:52 98.1 F 76 18 115/74 94 Room Air 05/17/24 22:45 73 05/17/24 22:27 98.2 F 133 H 18 147/63 H 94 Room Air 05/17/24 15:05 98.8 F 76 16 111/68 94 Room Air 05/17/24 11:43 97.9 F 78 18 128/80 95 Room Air O2 Flow Rate 05/18/24 09:30 05/18/24 09:20 05/18/24 09:12 6 05/18/24 06:52 05/17/24 22:45 05/17/24 22:27 05/17/24 15:05 05/17/24 11:43 Pain Intensity Right Face: Pain Intensity: 5 Transfer of Care Handoff Completed per policy Notes Mental Status: alert / awake / arousable and participated in evaluation Patient Amnestic to Procedure: Yes Nausea / Vomiting: adequately controlled Pain: adequately controlled Airway Patency, RR, SpO2: stable & adequate BP & HR: stable & adequate Hydration State: stable & adequate Anesthetic Complications: no major complications apparent and Pt Satisfied with anesthetic care
--- NOTE | 2024-05-18 13:45 | Hospitalist Progress Note ---
Date of Service May 18, 2024 Assessment & Plan (1) Facial abscess: Plan: Patient presented to ED on 05/16 with complaints of right facial swelling and dentition issues. -reviewed CT of face 05/16: 8mm periapical lucency w/ associated small focus of cortical breakthrough along buccal surface, accounting for adjacent 7mm soft tissue abscess. -reviewed CBC 05/18: WBC WNL, hgb 13.9 -reviewed BMP 05/18: stable -Continue Unasyn -surgery performed by Dr. Ivy 05/18. -Patient doing well post-op -Tylenol, Motrin as needed for pain AM CBC, BMP (2) Parkinson disease: Plan: Continue 4 times daily dosing of immediate and extended Sinemet Continue 3 times daily gabapentin Fall precautions ordered (3) T2DM (type 2 diabetes mellitus): Plan: Hold metformin Monitor BSG ACHS, goal is [id number] Is not on insulin at home For now we will start conservative regimen with CF of 50 and CR of 15 ACHS Adjust regimen as needed Plan Chronic conditions: hypertension: lisinopril DVT prophylaxis: SCD's Code status: DNR/DNI Diet: clear liquid Disposition: continued inpatient stay, possible discharge 05/19. Admission and Anticipated Discharge Date Admission Date: May 16, 2024 Subjective Patient seen and examined this afternoon at bedside. Patient reports that he tolerated his surgery well. He tolerated a clear liquid diet for lunch. He did note that the roof of his mouth felt "burnt" following his surgery. He had not urinated or defecated yet at the time of my encounter. He does note that his tremors from Parkinson's have been worse while in the hospital. He states he typically takes his parkinsonian medications prior to eating but has been receiving it after his meals here and he believes it may be affecting his symptoms. He is looking forward to returning home to be back in his normal medication schedule. Physical Exam 2 Constitutional: WD/WN, vitals as above Eyes: PERRL, conjunctivae normal, anicteric sclerae ENMT: right sided facial edema, decreased from 05/17 Respiratory: normal respiratory effort, lungs clear to auscultation Cardiovascular: RRR, no murmur, no edema Skin: no rashes, warm and dry Psychiatric: A+Ox3, euthymic affect Results & Data Results & Data Vital Signs (Past 12 Hours) Vital Signs Temp Pulse Pulse Resp BP BP Pulse Ox 05/18/24 12:25 36.1 C L 92 H 18 138/42 L 92 05/18/24 11:30 36.3 C L 82 16 115/73 94 05/18/24 11:01 36.4 C L 73 16 112/75 94 05/18/24 10:27 36.8 C 78 14 131/71 94 05/18/24 10:00 69 12 119/76 96 05/18/24 09:50 76 17 122/78 93 05/18/24 09:40 72 12 114/80 98 05/18/24 09:30 76 15 123/75 98 05/18/24 09:20 74 12 117/77 98 05/18/24 09:12 36 C L 74 20 125/79 98 05/18/24 06:52 36.7 C 76 18 115/74 94 O2 Del Method O2 Flow Rate 05/18/24 12:25 Room Air 05/18/24 11:30 Room Air 05/18/24 11:01 Room Air 05/18/24 10:27 Room Air 05/18/24 10:00 Room Air 05/18/24 09:50 Room Air 05/18/24 09:40 Room Air 05/18/24 09:30 Room Air 05/18/24 09:20 Room Air 05/18/24 09:12 Oxymask 6 05/18/24 06:52 Room Air Laboratory Results 05/18/24 06:52 05/18/24 06:52 PG Care Time/CCT Total # of Minutes Spent Total Time Spent with Patient: Total time spent is greater than 50% in coordination of care (as documented) at patient's floor/unit and/or counseling patient: Coding Level of Care Code 42490 SUB INP/OBS CARE 2/35MIN Diagnoses Facial abscess L02.01 Parkinson's disease, unspecified whether dyskinesia present, unspecified whether manifestations fluctuate G20.A1 Dyskinesia presence: unspecified whether dyskinesia Fluctuating manifestations: unspecified whether manifestations fluctuate Type 2 diabetes mellitus without complication, without long-term current use of insulin E11.9 Diabetes mellitus complication status: without complication Diabetes mellitus custodial insulin use: without custodial use (2) Parkinson disease Dyskinesia presence: unspecified whether dyskinesia Fluctuating manifestations: unspecified whether manifestations fluctuate Qualified Code(s): G20.A1 - Parkinson's disease without dyskinesia, without mention of fluctuations (3) T2DM (type 2 diabetes mellitus) Diabetes mellitus complication status: without complication Diabetes mellitus intermediate manager insulin use: without intermediate manager use Qualified Code(s): E11.9 - Type 2 diabetes mellitus without complications
--- NOTE | 2024-05-18 21:58 | Operative Report ---
PG Post Operative Report Pre & Post Diagnosis Operation Date: 05/18/24 07:30 Pre-Op Diagnosis: Right facial abscess Post-Op Diagnosis: Right facial abscess I identified the patient and participated in the time-out.: Yes Procedure Operation Date: 05/18/24 07:30 Actual Procedures p Incision and Drainage of upper right Infraorbital Abscess; Extraction of multiple teeth(Right) - Ravin Ivy DMD Surgeon Ravin Ivy DMD Water Resource Manager none Estimated Blood Loss 5 Findings Consistent with Post-Op Diagnosis grossly infected teeth and facial abscess Specimens Drainage from right infraorbital abscess Drains none Anesthesia Type General Complications none Disposition Accompanied Patient To Recovery: Yes Indications infection Description of Procedure p Incision and Drainage right maxillary vestibule and infraorbital space I&D Abscess and right pet technologist space infection ; - Ravin Ivy DMD ICD 10 K12.2 , L03.211 CPT 70912 I & D of Deep subcutaneous abscess of the inferior orbital and vestibular space of right maxilla CPT 77555 I & D Right pet technologist space infection Once cleared for surgery general anesthesia was achieved, the eyes were protected by the anesthesia dept criteria. A time out was take for patient ID, antibiotics, equipment and position verification once all agreed the procedure began. Local anesthesia using Marcaine with a vasoconstrictor ( 1.8 ml per site) given into left posterior maxilla A throat pack was placed after the oral cavity was irrigated with saline. Once a surgical level of anesthesia was obtained and the local anesthesia was given time for the blocks the surgery was started. I turned my attention to the infection which was located in the in the right cheek,vestibule, tuberosity area, Infraorbital fossa area CT scan report--rim-enhancing right facial fluid collection along the lateral aspect of the right maxilla. This favors a small abscess. This is odontogenic although definitive source is not identified on this exam Incision and Drainage of deep subcutaneous abscess of the right inferior orbital and vestibular space of right maxilla CPT 02862 Using a 15 blade an incision was made in the posterior aspect of the vestibular area upper right side. Once the incision was made a lot of pus extruded from the site. This drainage was cultured for anaerobic and aerobic bacteria. A curved hemostat was carefully placed superior into the infected space to drain the infraorbital space. To gain access to the pocket of pus in the cheek another incision was made in the vestibule. This allowed further drainage to escape. I palpated the face and cheek area and no further drainage was expressed. The area was irrigated with at least 100 ml of NS solution. Extraction of Upper teeth 4,5,6,7,8, associated with inferior orbital and vestibular space of right maxilla D7210 x 5 The full thick Muco-periosteal flap was reflected further to expose the facial aspect from the grossly infected teeth associated with the infection. The flap was reflected to expose the the subperiosteal space the bone adjacent to teeth # 4,5,6,7,8 The teeth were grossly decayed and a drill was used to remove bone, the teeth were removed with a 301 elevator and dental forceps, there was a large amount of granulation tissue on the apex and some more pus was expressed. Once the teeth were removed the sites were curetted and irrigated. 2-0 Chromic sutures were used to close the site. Given the poor quality of the following teeth it was decided to extract these teeth as well to prevent any future infections The following teeth were electively removed as they were grossly decayed and non restorable. Extraction of teeth # 1,9,10,11,13,18. D7210 x 6 The full thickness flap was continued to the left maxilla and reflected, bone removed with a rongeur, the fractured teeth and roots were visualized, # 1 was close to the sinus, the teeth were now removed with an 81 elevator and dental forceps . Bony margins were trimmed, smoothed and sutured closed with a 2-0 chromic. There was no sinus involvement. # 18 was a grossly decayed retained root and was removed with a elevator without issues. Incision and Drainage of right pet technologist space infection CPT 24646 Using a 15 blade an incision was made on the external oblique ridge and retromolar pad. Once the incision was made a lot of pus extruded from the site. A curved hemostat was carefully placed into the infected space along the lateral and medial side of the lower jaw and into the pet technologist space. Some further drainage was now allowed to escape. I palpated the cheek and submandibular area and no further drainage was expressed. The area was irrigated with at least 100 ml of NS solution. I now turned my attention to remove the 2 teeth that were associated with this infection # 30 and 31 Extraction of Lower teeth # 30 and 31 associated with the pet technologist space infection D7210 x 2 The full thick Muco-periosteal flap was reflected further to expose the facial aspect from the retromolar pad to area # 29. The flap was reflected to expose the the subperiosteal space the bone adjacent to #30,31 The teeth were grossly decayed and a drill was used to remove bone, the teeth were removed with a 301 elevator and dental forceps , the mental nerve was intact, there was a large amount of granulation tissue on the apex and some more pus that was expressed. Once the teeth were removed the sites was curetted and irrigated. 2-0 Chromic sutures were used to close the site. I inspected the sites to insure all bleeding was controlled. I removed the throat pack and suctioned the throat. Bilateral gauze pressure dressings were placed. All instrument and sponge count was correct. The patient was allowed to awake from the anesthesia. Once full awake the anesthesia tube was removed and the patient was taken to the recovery room with all vital sign stable. The patient tolerated the surgery very well. I will follow the patient in my office, Rx and instructions will be given upon discharge. I attest to the content of the Intraoperative Record and any orders documented therein. Any exceptions are noted below.
[2024-05-19 05:52] LABS: Hematocrit (blood only) 38.3 % (42.0-52.0); Hemoglobin 12.8 g/dl (14.0-18.0); Mean Corpuscular Hemoglobin 31.1 pg (25.0-34.0); Mean Corpuscular Hgb Conc 33.4 g/dL (32.0-36.0); Mean Corpuscular Volume 93.2 fL (80.0-100.0); Mean Platelet Volume 11.2 fL (9.4-12.4); Platelet Count 171 K/uL (130-400); RDW Coefficient of Variation 13.1 % (11.5-14.5); RDW Standard Deviation 44.7 fL (36.4-46.3); Red Blood Count 4.11 M/uL (4.70-6.10); White Blood Count 7.53 K/ul (4.8-10.8)
[2024-05-19 06:09] LABS: Albumin Globulin Ratio 1.4 (0.9-2); Albumin Level 3.8 gm/dl (3.4-5.0); BUN Creatinine Ratio 16.5 (10-20); Bilirubin,Total 0.6 mg/dl (0.2-1.0); Calcium 8.4 mg/dl (8.6-10.3); Creatinine Clr Calc Pharmacy 101.3 ml/min; Est GFR (Non-African American) 86.3 ml/min; Globulin 2.7 gm/dl (2.5-4.0); Magnesium 2.1 mg/dl (1.7-2.4); Potassium 4.1 mmol/L (3.5-5.1); Total Protein 6.5 gm/dl (6.0-8.3)
--- NOTE | 2024-05-19 09:43 | Oral/Maxillofacial Progress Nt ---
Date of Service May 19, 2024 Assessment & Plan Admission and Anticipated Discharge Date Admission Date: May 16, 2024 Subjective POST OP NOTE at 24 hours s/p I&D with extractions The patient is doing very well post operatively. Swelling is almost gone, better oral opening Tissue tone =healthy normal tissue No sinus or nerve complications noted ROM is improving, pain is controlled Sutures =in place Reviewed oral care Reviewed diet, massage, exercise and continued home/oral care OK for discharge RTC June 04 at 3:30 pm for follow up care in my office Overall: Excellent healing from recent oral surgery Results & Data Vital Signs (Past 12 Hours) Vital Signs Temp Pulse Resp BP Pulse Ox O2 Del Method 05/19/24 07:15 36.5 C 75 15 118/75 96 Room Air 05/19/24 06:21 36.6 C 75 16 128/78 95 Room Air 05/19/24 02:12 36.7 C 82 16 142/79 H 94 Room Air 05/18/24 21:55 36.5 C 81 18 149/74 H 95 Room Air PG Care Time/CCT Total # of Minutes Spent Total Time Spent with Patient: Total time spent is greater than 50% in coordination of care (as documented) at patient's floor/unit and/or counseling patient: Coding Level of Care Code None
--- NOTE | 2024-05-19 10:06 | Discharge Summary ---
Date of Service May 19, 2024 Admission HPI Per Admitting Provider Uvaldo is a 68-year-old male with past medical history significant for Parkinson's disease, DM type II, hypertension who presented to [facility] ED on 05/16/2024 due to progressive right facial swelling under his right eye. Per the ED staff, the patient has had history of poor dentition and has been trying to find a surgeon who can remove his teeth but has been unable to to do so thus far. He remained stable in the ED. Labs including CBC and CMP were unremarkable. CT of the facial bones with contrast was read as an 8 mm periapical lucency at A.D.A. 6 with an associated small focus of cortical breakthrough along the buccal surface. This likely accounts for the adjacent 7 mm soft tissue abscess. The ED spoke to Dr. Branham of ENT who will evaluate the patient this afternoon and will likely take him to the OR during this admission. Prior to admission the patient was given a dose of Unasyn. Patient was sitting in bed in no acute distress at time of exam with his bedside, history was obtained from both. Patient explains that he has right upper wisdom tooth which has been bothering him for a few months. Starting on 05/12/2024 he started to develop increased pain around the site of that tooth. Yesterday, he started to notice swelling under his right eye. Overnight the swelling significantly increased to the point that it was starting to affect his right peripheral vision in the right eye. Denies recent fever or chills, chest pain, shortness of breath, cough, abdominal pain, nausea/vomiting, dysuria, hematuria, diarrhea, or recent trauma. He explains that since receiving the first dose of Unasyn he has had significant improvement in the swelling around his right eye and no longer has vision deficits. We discussed CODE STATUS, he wishes to be DNR/DNI and for his to make medical decisions for him if he cannot make them himself. Please refer to Dr. Gurrola's attestation for any changes to the treatment plan. Principal Diagnosis right facial abscess, dental infection Discharge Data Allergies Allergy/AdvReac Type Severity Reaction Status Date / Time morphine AdvReac Intermediate NAUSEA AND Verified 04/10/24 09:23 VOMITING oxycodone AdvReac Intermediate N/V Verified 04/10/24 09:23 Consultations 05/16/24 15:38 ED Decision to Admit Stat 05/16/24 16:12 Consult Oromaxillofacial Surgery Routine Procedures Performed Operation Date: 05/18/24 07:30 Actual Procedures p Incision and Drainage of upper right Infraorbital Abscess; Extraction of multiple teeth(Right) - Ravin Branham DMD Ordered Studies Face CT 05/16/24 13:40 IMPRESSION: There is an 8 mm periapical lucency at ADA 6 with an associated small focus of cortical breakthrough along the buccal surface. This likely accounts for the adjacent 7 mm soft tissue abscess. Electronically signed by: Oliver Conway M.D. 05/16/2024 3:02 PM Chest X-Ray 05/16/24 16:06 IMPRESSION: 1. Stable mild cardiomegaly. 2. Low lung volumes. Electronically signed by: Oliver Conway M.D. 05/16/2024 5:50 PM 05/19/24 05:16 05/19/24 05:16 Vital Signs Temp 36.5 C 05/19/24 07:15 Pulse 75 05/19/24 07:15 Resp 15 05/19/24 07:15 BP 118/75 05/19/24 07:15 Pulse Ox 96 05/19/24 07:15 O2 Del Method Room Air 05/19/24 07:15 O2 Flow Rate 6 05/18/24 09:12 Hospital Course (1) Facial abscess: Patient presented to ED on 05/16 with complaints of right facial swelling and dentition issues. He had CT of face on 05/16 that revealed 8mm periapical lucency with associated small focus of cortical breakthrough along buccal surface, accounting for adjacent 7mm soft tissue abscess. His CBC/BMP on 05/19 were stable. He was on Unasyn during his hopsital stay and transitioned to Augmentin outpatient. He underwent surgery by Dr. Branham on 05/18 that went well. He was encouraged to use tylenol and motrin prn for pain on discharge. (2) Parkinson disease: Continue 4 times daily dosing of immediate and extended Sinemet and 3 times daily gabapentin. (3) T2DM (type 2 diabetes mellitus): Metformin resumed upon discharge. He was on sliding scale insulin while inpatient. Plan Chronic conditions: hypertension: lisinopril Total Time Total Time Spent Total Time Spent (In Minutes): 34 Total Time Includes: Examination of the Patient, Discharge Planning, Medication Reconciliation and Communication With Other Providers Discharge Plan Discharge Items Patient Disposition: Home - Self-Care Reason For Visit: FACIAL ABSCESS Discharge Diagnosis: facial infection Condition on Discharge: Good Activity: Resume your previous activity Lifting: Gradually increase as tolerated Bathing: No limitations Exercise/Sports: Gradually increase as tolerated Weightbearing: Full weightbearing Non-emergency contact: Surgeon Call non-emergency contact if: you have any medication questions, your symptoms worsen, your temperature is above 101.5, your wound has increased redness, your wound has increased drainage and your wound pain has increased Follow-up/Referrals: Loren Rubi DO [Primary Care Provider] - (THE PCP OFFICE WILL CALL YOU WITH A HOSPITAL FOLLOW UP.) Ravin Branham DMD [Physician] - (DR BRANHAM'S OFFICE WILL CONTACT YOU WITH A HOSPITAL FOLLOW UP VISIT.) Diet: Full liquid, Clear liquid and Other - See Diet Comment Diet Comment: advance to dental soft when able Addtl Attending Provider Instructions: Mr. Gutierrez, Mike were recently hospitalized for a dental infection and underwent surgery by Dr. Branham on 05/18/2024. Please see discharge instructions below. 1. Please take Augmentin twice daily for 7 days. -Your next dose will be this evening 05/19. -Please take with food to avoid upset stomach 2. Please use NSAIDs and Tylenol for pain 3. Please resume previously prescribed medications upon discharge. 4. Instructions from Dr. Branham are below. Please also follow up with PCP within 1-2 weeks. Sincerely, Katelyn Hassan PA-C ADDITIONAL ACTIVITY RECOMMENDATIONS: * [place] your lower remaining teeth after every meal. It is very important to keep your mouth clean to prevent infection. * Starting tonight rinse with the Peridex as directed then 2 x a day * it is very important to keep well hydrated, this prevents fever and possible dry socket pain SPECIAL CARE INSTRUCTIONS: *It is not uncommon that between day 2-4 that your swelling will be at its worst this is very normal, do not be alarmed. * Keep ice on the side of your face for the next 24 to 36 hours. This will help keep the swelling down. * Tomorrow start rinsing your mouth with 1/2 teaspoon salt in 8 ounces warm water. This rinse should be used every 4-6 hours. * Some swelling is common. It should gradually decrease within 4-5 days. * A certain amount of bleeding is to be expected. It is often possible to control mild oozing by placing folded gauze over the area and biting down for 30 minutes. If you are unable to control excessive bleeding, call Dr Branham at [phone] * You may experience some discomfort for a few days. If pain or swelling increases, Call Dr Branham * Return to the office for a follow up check up on: June 04 at 3:30 * [facility] phone # [phone] Pending Studies at Discharge: No Stand-Alone Forms: My [facility] [employer], Smoking Cessation Medications and DC Order Prescriptions: Continued docusate sodium [Stool Softener] 100 mg capsule 100 mg PO BID PRN (Reason: Constipation) mecobalamin (vitamin B12) 1,000 mcg tablet,disintegrating 1,000 mcg sublingual DAILY Qty: 90 1RF Rx Instructions: place tablet under tongue and allow to dissolve for at least30 secs before swallowing carbidopa-levodopa 25-100 mg tablet 2 tab PO QID 90 Days Qty: 720 1RF gabapentin 600 mg tablet 600 mg PO TID Qty: 270 1RF lisinopril 10 mg tablet 10 mg PO HS Qty: 90 1RF metformin 500 mg tablet extended release 24 hr 500 mg PO QPM Qty: 90 1RF amoxicillin-pot clavulanate 875-125 mg tablet 1 tab PO Q12H Qty: 14 0RF naproxen sodium [Aleve] 220 mg capsule 220 mg PO BID PRN (Reason: Pain) cholecalciferol (vitamin D3) 50 mcg (2,000 unit) capsule 50 mcg PO DAILY carbidopa-levodopa 50-200 mg tablet extended release 1 tab PO QID ropinirole 0.5 mg tablet 0.5 mg PO HS Discharge Orders: Discharge Order (Routine); Ordered 05/19/24 Ordered By: Katelyn Muir/Other Patient Handouts: ED Abscess Dental Cellulitis Admission Data Admit Date/Time: 05/16/24 15:42 Attending Provider: Paula Hernandez Admit Provider: Lorne Gurrola Primary Care Provider: Loren Rubi Other Providers: Lorne Gurrola; Ravin Branham Other Interventions: Discharge Summary Assessment (RN) Last Done: 05/19/24 11:43 Coding Level of Care Code 78451 INP/OBS DISCH >30 MIN Diagnoses Facial abscess L02.01 Parkinson's disease, unspecified whether dyskinesia present, unspecified whether manifestations fluctuate G20.A1 Dyskinesia presence: unspecified whether dyskinesia Fluctuating manifestations: unspecified whether manifestations fluctuate Type 2 diabetes mellitus without complication, without long-term current use of insulin E11.9 Diabetes mellitus complication status: without complication Diabetes mellitus jail insulin use: without jail use
== END 2024-05-19 14:00 | disposition home or self-care (01) | DRG 603 ==
LOC: ED 12:21 → 3W 15:42 → SUATTDRO 15:42 → 3W 16:20